=== PATIENT | female | born 1995 | race Caucasian/White ===

== ENCOUNTER → 2016-09-29 | Outpatient (CLI) | payer OTHER ==
--- NOTE | 2016-09-29 10:40 | CT ---
EXAMINATION TYPE: CT soft tissue neck wo con DATE OF EXAM: 09/29/2016 8:41 AM COMPARISON: Ultrasound thyroid 04 December 2015 HISTORY: Neck pain, thyromegaly and shortness of breath Automated exposure control for dose reduction was used. FINDINGS: Mild mucosal disease present at the maxillary sinus antra, right sphenoid sinus. Heterogeneous densit y within the thyroid gland compatible with patient's known nodules. Lung apices are unremarkable. Non enlarged lymph nodes are present along the anterior cervical chains, BB is present overlying the left neck region, no additional underlying mass. Salivary gland show symmetric appearance. Skull base is normal. The airway is patent. Level the true and false cords is normal. No evident spinal stenosis. Cervical vertebral bodies show preserved height, alignment, and bone mine ralization. IMPRESSION: SINUS DISEASE. SUBCENTIMETER THYROID NODULES WERE NOTED ON PRIOR THYROID ULTRASOUND. NONCONTRAST EXAM MAY LIMIT SENSITIVITY.
== END | disposition home or self-care (01) ==
LOC: RADCTMAIN 08:24
PROVIDERS: ATTEND Internal Medicine Hematology & Oncology
DX: E04.2 Nontoxic multinodular goiter (principal)
CPT/HCPCS: 70490

== ENCOUNTER 2016-10-05 17:02 | Emergency (ER) | payer OTHER ==
[2016-10-05 17:41] VITALS: BP 110/65; PULSE 127; RESP 20; TEMP 103
[2016-10-05] MEDS ORDERED: ACETAMINOPHEN TAB 500 MG TAB PO STA (17:47)
[2016-10-05] MEDS ORDERED: IBUPROFEN 600 MG TAB PO STA (17:47)
--- NOTE | 2016-10-05 17:54 | ED ---
Fever HPI - General Chief Complaint: Fever Stated Complaint: Flu symptom Time Seen by Provider: 10/05/16 17:43 Source: patient Mode of arrival: ambulatory Limitations: no limitations - History of Present Illness Initial Comments: Patient is a 21-year-old female presenting with fever. Patient states fever started yesterday and has been subjective in nature. Patient took Tylenol last at 8 AM. Patient complains of headache, congestion, myalgias, sore throat. Patient sister was recently in the ER this morning and diagnosed with influenza B. Patient denies chest pain, short of breath, nausea, vomiting, and abdominal pain, dysuria. - Related Data Home Medications Medication Instructions Recorded Confirmed No Known Home Medications [No 05/04/16 10/05/16 Known Home Medications] Previous Rx's Medication Instructions Recorded Oseltamivir [Tamiflu] 75 mg PO Q12HR #10 cap 10/05/16 Allergies Allergy/AdvReac Type Severity Reaction Status Date / Time No Known Allergies Allergy Verified 10/05/16 18:01 Review of Systems ROS Statement: Those systems with pertinent positive or pertinent negative responses have been documented in the HPI. Constitutional: +fever and no chills. HENT: +congestion, no rhinorrhea and +sore throat. Eyes: No discharge and no redness. Respiratory: No cough and no shortness of breath. Cardiovascular: No chest pain and no palpitations. Gastrointestinal: No nausea, no vomiting, no abdominal pain and no diarrhea. Genitourinary: No dysuria and no hematuria. Musculoskeletal: No back pain and + myalgias Skin: No pallor and no rash. Neurological: No dizziness and +headaches. ROS Other: All systems not noted in ROS Statement are negative. Past Medical History Past Medical History: No Reported History Additional Past Medical History / Comment(s): nodules on thyroid History of Any Multi-Drug Resistant Organisms: None Reported Past Surgical History: No Surgical Hx Reported Past Psychological History: Anxiety Smoking Status: Never smoker Past Alcohol Use History: Occasional Past Drug Use History: None Reported General Exam - General Exam Comments Initial Comments: Constitutional: Patient appears well-developed and well-nourished. No distress. Warm to the touch. Head: Normocephalic and atraumatic. Eyes: Conjunctivae and EOM are normal. Right eye exhibits no discharge. Left eye exhibits no discharge. No scleral icterus. Ears: Bilateral TMs with normal landmarks Throat: Erythematous without tonsillar exudates. Neck: Normal range of motion. Neck supple. No rigidity. Cardiovascular: Normal rate and regular rhythm. No murmur heard. Pulmonary/Chest: Effort normal and breath sounds normal. No respiratory distress. No wheezes. Abdominal: Soft. No distension. There is no tenderness. There is no rebound and no guarding. Musculoskeletal: Normal range of motion. No edema or tenderness. Neurological: Patient alert and oriented to person, place, and time. Skin: Skin is warm and dry. Not diaphoretic. Nursing notes and vitals reviewed. Limitations: no limitations Course Vital Signs 10/05/16 17:37 Temperature 103.0 F H Pulse Rate 127 H Respiratory 20 Rate Blood Pressure 110/65 O2 Sat by Pulse 100 Oximetry - Reevaluation(s) Reevaluation #1: Patient will be given Tylenol Motrin while here. Patient agrees with plan for prophylactic treatment of influenza given that her sister was recently here and diagnosed with influenza B. Medical Decision Making - Medical Decision Making Patient's a 21-year-old female presenting with fever. Patient has a sick contact at home versus was diagnosed with influenza B earlier today. She has no other source of fever and will be prophylactically treated with Tamiflu.Prior to discharge, patient was resting comfortably in bed. Course of stay stable for outpatient treatment. Denies pain. Discussed physical exam and diagnostic tests with patient. Questions answered and patient is agreeable to discharge with close follow up with Primary Care Physician. Instructed to return to Emergency Department if symptoms worsen. Disposition Clinical Impression: Influenza Disposition: HOME SELF-CARE Condition: Good Instructions: Fever in Adults (ED) Prescriptions: Oseltamivir [Tamiflu] 75 mg PO Q12HR #10 cap Referrals: Amaury Lilly MD [Primary Care Provider] - 1-2 days
== END 2016-10-05 18:11 | disposition home or self-care (01) ==
LOC: EC 17:02
DX: J11.1 Influenza due to unidentified influenza virus with other respiratory manifestations (principal)
CPT/HCPCS: 99282

== ENCOUNTER 2016-12-04 23:22 | Emergency (ER) | payer OTHER ==
[2016-12-04 23:29] VITALS: RESP 18; TEMP 98
[2016-12-05] MEDS ORDERED: MAG HYDROX/AL HYDROX/SIMETH 30 ML, HYOSCYAMINE ELIXIR 10 ML, CIMETIDINE HCL 300 MG, LID... PO STA ×4 (00:03)
--- NOTE | 2016-12-05 00:05 | ED ---
General Adult HPI - General Chief complaint: Nausea/Vomiting/Diarrhea Stated complaint: not able to eat, tyesha Time Seen by Provider: 12/04/16 23:39 Source: patient, RN notes reviewed Mode of arrival: ambulatory Limitations: no limitations - History of Present Illness Initial comments: Patient is a 21-year-old female presents to the emergency room for evaluation of heartburn and throat irritation. Patient states she's been having issues with enlarged thyroid and thyroid nodules. Patient states that she has the sensation of her throat clossing up. Patient states she has seen many specialists but they do not want to remove her nodules. Patient stated over the past 3 weeks she began developing worsening heartburn. Patient states she has not been taking any medications for it. Patient states she just wants the heartburn to stop. Patient states needs medication to help the heartburn. Patient denies fevers or chills. Patient denies chest pain. Patient denies headache or dizziness. Patient nausea or vomiting. - Related Data Home Medications Medication Instructions Recorded Confirmed Ibuprofen [Motrin] 400 mg PO Q6HR PRN 12/04/16 12/04/16 Previous Rx's Medication Instructions Recorded Famotidine [Pepcid] 20 mg PO DAILY #12 tablet 12/05/16 Allergies Allergy/AdvReac Type Severity Reaction Status Date / Time No Known Allergies Allergy Verified 12/04/16 23:44 Review of Systems ROS Statement: Those systems with pertinent positive or pertinent negative responses have been documented in the HPI. ROS Other: All systems not noted in ROS Statement are negative. Past Medical History Past Medical History: No Reported History Additional Past Medical History / Comment(s): nodules on thyroid History of Any Multi-Drug Resistant Organisms: None Reported Past Surgical History: No Surgical Hx Reported Past Psychological History: Anxiety Smoking Status: Never smoker Past Alcohol Use History: Rare Past Drug Use History: None Reported General Exam - General Exam Comments Initial Comments: Sitting in exam room, no acute distress. Limitations: no limitations General appearance: alert, in no apparent distress Head exam: Present: atraumatic, normocephalic, normal inspection Eye exam: Present: normal appearance ENT exam: Present: normal exam Neck exam: Present: normal inspection Respiratory exam: Present: normal lung sounds bilaterally. Absent: respiratory distress Cardiovascular Exam: Present: regular rate, normal rhythm, normal heart sounds Extremities exam: Present: normal inspection Back exam: Present: normal inspection Neurological exam: Present: alert, oriented X3, CN II-XII intact, normal gait Psychiatric exam: Present: normal affect, normal mood Skin exam: Present: warm, dry, intact, normal color. Absent: rash Course Vital Signs 12/04/16 12/05/16 23:26 01:50 Temperature 98.0 F Pulse Rate 83 74 Respiratory 18 18 Rate Blood Pressure 114/72 124/72 O2 Sat by Pulse 100 96 Oximetry Medical Decision Making - Medical Decision Making Patient is a 21-year-old female presents emergency room for evaluation of heartburn. Patient given GI cocktail with slight relief of symptoms. Patient states her throat feels swollen. Soft tissue neck x-ray shows no concerning findings. Patient given Solu-Medrol and Pepcid. Will send patient home with Pepcid for heartburn and advised her to follow-up with her primary care provider. Return parameters discussed. Case discussed with Dr. Cross. - Radiology Data Radiology results: report reviewed, image reviewed Disposition Clinical Impression: Acid reflux Disposition: HOME SELF-CARE Condition: Good Instructions: Gastroesophageal Reflux Disease (ED) Additional Instructions: Take Pepcid as directed. Please follow up with primary care provider in 1-2 days. If any new symptom arises or symptoms worsen, return to ER as soon as possible. Prescriptions: Famotidine [Pepcid] 20 mg PO DAILY #12 tablet Referrals: Amaury Lilly MD [Primary Care Provider] - 1-2 days Time of Disposition: 01:44
[2016-12-05] MEDS ORDERED: methylPREDNISolone SOD SUCCI 125 MG/2 ML VIAL IM ONE (01:00)
[2016-12-05] MEDS ORDERED: FAMOTIDINE 20 MG TAB PO STA (01:01)
--- NOTE | 2016-12-05 01:14 | XR ---
EXAM: XR Soft Tissue Neck. CLINICAL HISTORY: Reason: Pain TECHNIQUE: Frontal and lateral views of the soft tissues of the neck. COMPARISON: No relevant prior studies available. FINDINGS: Airway: Unremarkable. No abnormal narrowing. Soft tissues: Unremarkable. No abnormal soft tissue prominence. Normal epiglottis. Bones: No acute findings. IMPRESSION: Normal neck.
[2016-12-05 02:01] VITALS: BP 124/72; PULSE 74
== END 2016-12-05 01:50 | disposition home or self-care (01) ==
LOC: EC 23:22
DX: K21.9 Gastro-esophageal reflux disease without esophagitis (principal); R09.89 Other specified symptoms and signs involving the circulatory and respiratory systems; E04.1 Nontoxic single thyroid nodule
CPT/HCPCS: 70360; 99283

== ENCOUNTER 2017-03-15 03:38 | Emergency (ER) | payer OTHER ==
[2017-03-15 03:44] VITALS: BP 114/71; PULSE 78; RESP 18; TEMP 98.5
[2017-03-15] MEDS ORDERED: BUPIVACAINE (PF) 0.5% 30 ML VIAL MISCELLANE STA (03:52)
--- NOTE | 2017-03-15 04:07 | ED ---
ENT HPI - General Chief complaint: Dental/Oral Stated complaint: Dental Pain Time Seen by Provider: 03/15/17 03:46 Source: patient, RN notes reviewed Mode of arrival: ambulatory Limitations: no limitations - History of Present Illness Initial comments: Patient is a 21-year-old female presents to the emergency room for evaluation abdominal pain. Patient states she has been having dental pain for the past few weeks. Patient states pains been worsening throughout the night. Patient does state she has a fractured tooth in her left upper tooth. Patient states that she has been unable to follow-up with a dentist. patient states been taking Tylenol with little relief of symptoms. Patient does states she is 19 weeks . Patient states she's been doing saltwater gargles with little relief of symptoms. Patient denies fevers or chills. Patient denies headache or dizziness. Patient denies facial swelling. - Related Data Previous Rx's Medication Instructions Recorded Amoxicillin 500 mg PO Q12HR 10 Days 03/15/17 Allergies Allergy/AdvReac Type Severity Reaction Status Date / Time No Known Allergies Allergy Verified 03/15/17 03:44 Review of Systems ROS Statement: Those systems with pertinent positive or pertinent negative responses have been documented in the HPI. ROS Other: All systems not noted in ROS Statement are negative. Past Medical History Past Medical History: No Reported History Additional Past Medical History / Comment(s): nodules on thyroid History of Any Multi-Drug Resistant Organisms: None Reported Past Surgical History: No Surgical Hx Reported Past Psychological History: Anxiety Smoking Status: Never smoker Past Alcohol Use History: None Reported Past Drug Use History: None Reported General Exam - General Exam Comments Initial Comments: laying in exam room, no acute distress. Limitations: no limitations General appearance: alert, in no apparent distress Head exam: Present: atraumatic, normocephalic, normal inspection Eye exam: Present: normal appearance ENT exam: Present: normal exam Expanded Teeth exam: Present: fractured tooth # (14), dental tenderness # (14) Neck exam: Present: normal inspection Respiratory exam: Absent: respiratory distress Extremities exam: Present: normal inspection Back exam: Present: normal inspection Neurological exam: Present: alert, oriented X3, CN II-XII intact, normal gait Psychiatric exam: Present: normal affect, normal mood Skin exam: Present: warm, dry, intact, normal color. Absent: rash Course Vital Signs 03/15/17 03:41 Temperature 98.5 F Pulse Rate 78 Respiratory 18 Rate Blood Pressure 114/71 O2 Sat by Pulse 99 Oximetry Procedures - Nerve Block Consent Obtained: verbal consent Local Anesthetic Used: Marcaine 0.5% Amount of anesthesia used: 2 Side: left Intraoral Nerve Block: superior alveolar Procedure Successful: Yes Complications: none Patient Tolerated Procedure: well, no complications Medical Decision Making - Medical Decision Making Patient is a 21-year-old female presents emergency room for evaluation of dental pain. Patient requesting dental block. Patient was sent home on antibiotics and advised to follow-up with dentist. Return parameters discussed. Case discussed Dr. Childers. Disposition Clinical Impression: Pain, dental Disposition: HOME SELF-CARE Condition: Good Instructions: Dental Caries (ED), Toothache (ED) Additional Instructions: Please follow up with a dentist. If you do not have a dentist, you may contact [facility]. Phone number is [phone] for existing clients. For new clients you may call [phone]. Another option is you have is the [facility] dental school. Phone number is [phone]. Medications as directed. Saltwater gargles. Cold fluids can sometimes help with pain as well. Return to the Emergency Room for any worsening or changing symptoms. Use cold compresses to the outside of the face. Prescriptions: Amoxicillin 500 mg PO Q12HR 10 Days Referrals: Amaury Lilly MD [Primary Care Provider] - 1-2 days Time of Disposition: 04:06
== END 2017-03-15 04:15 | disposition home or self-care (01) ==
LOC: EC 03:38
DX: O9A.212 Injury, poisoning and certain other consequences of external causes complicating pregnancy, second trimester (principal); S02.5XXA Fracture of tooth (traumatic), initial encounter for closed fracture; O99.89 Other specified diseases and conditions complicating pregnancy, childbirth and the puerperium; R10.9 Unspecified abdominal pain; Z3A.19 19 weeks gestation of pregnancy
CPT/HCPCS: 64400; 99282

== ENCOUNTER → 2017-05-01 | Outpatient (CLI) | payer OTHER ==
[2017-05-01 12:44] LABS: CH 27.6; CHCM 33.8; HDW 3.14; HGB 11.6 gm/dL (11.4-16.0); MCH 28.1 pg (25.0-35.0); MCHC 34.2 g/dL (31.0-37.0); MCV 82.2 fL (80.0-100.0); Mean Platelet Volume 8.6; RBC 4.13 m/uL (3.80-5.40); RDW 14.4 % (11.5-15.5); WBC 9.2 k/uL (3.8-10.6)
[2017-05-01 15:31] LABS: Glucose 103 mg/dL (74-99); Non-African American GFR(MDRD) >60 (>60 ml/min/1.73 sqM)
[2017-05-01 16:03] LABS: Hepatitis B Surface Ag Index 0.06
[2017-05-01 20:56] LABS: Treponemal Ab Non-Reactive (Non-Reactive)
== END | disposition home or self-care (01) ==
LOC: LABWHC1 11:22
PROVIDERS: ATTEND Obstetrics & Gynecology
DX: Z34.82 Encounter for supervision of other normal pregnancy, second trimester (principal); Z3A.00 Weeks of gestation of pregnancy not specified
CPT/HCPCS: 36415; 82565; 82947; 82950; 85027; 86762; 86780; 86850; 86900; 86901; 87340

== ENCOUNTER → 2018-04-12 | Outpatient (CLI) | payer OTHER ==
--- NOTE | 2018-04-13 05:37 | US ---
EXAMINATION TYPE: US thyroid st tissue head/neck DATE OF EXAM: 04/12/2018 COMPARISON: US 12/04/2015, CT 09/29/2016 CLINICAL HISTORY: 22-year-old female E04.1 Goiter. TECHNIQUE: Multiple sonographic images of the thyroid gland are obtained. FINDINGS: GLAND SIZE: Right Lobe: 5.7 x 2.0 x 2.0 cm Overall Parenchyma: homogenous Left Lobe: 5.5 x 1.9 x 1.8 cm Overall Parenchyma: homogeneous Isthmus Thickness: 0.3 cm NODULES RIGHT: # of nodules measured on right: 1 1. 0.3 X 0.2 x 0.3 cm tiny 3 mm hypoechoic nodule at the mid pole with ill-defined margins; . This nodule is wider than tall and shows intranodular vascularity. Prior size: 0.4 x 0.3 x 0.3 cm LEFT: # of nodules measured on left: 2 1. 0.9 X 0.4 x 0.6 cm hypoechoic solid nodule at the upper pole with well-defined margins; . This nodule is wider than tall and shows intranodular vascularity. Prior size: 0.5 x 0.5 x 0.3 cm 2. 0.7 X 0.5 x 0.7 cm hypoechoic solid nodule at the lower pole with well-defined margins; . This n odule is wider than tall and shows intranodular vascularity. Prior size: 0.6 x 0.5 x 0.4 cm ISTHMUS: # of nodules measured in the isthmus: 0 Lymph node visualized right neck measuring 1.7 x 0.7 x 1.2 cm (1.2 cm short axis is borderline enlarg ed) IMPRESSION: 1. Mild thyromegaly with subcentimeter nodules may represent goiter. 2. A 9 x 6 mm solid nodule in the left upper pole has increased in size from 5 x 5 mm. Also, a 7 x 7 mm solid left lower pole nodule is slightly increased in size from 6 x 5 mm, previously. These should continue to be followed.
== END | disposition home or self-care (01) ==
LOC: RADUSWWP 15:43
PROVIDERS: ATTEND Family Medicine
DX: E04.2 Nontoxic multinodular goiter (principal)
CPT/HCPCS: 76536

== ENCOUNTER 2018-05-15 05:21 | Emergency (ER) | payer OTHER ==
[2018-05-15 05:32] VITALS: BP 114/67; PULSE 93; RESP 18; TEMP 968.3
--- NOTE | 2018-05-15 06:00 | XR ---
EXAMINATION TYPE: XR ankle complete RT DATE OF EXAM: 05/15/2018 COMPARISON: NONE HISTORY: Ankle pain TECHNIQUE: 3 views FINDINGS: There is some soft tissue swelling over the lateral malleolus. I see no fracture nor disloc ation. Joint spaces are normal. IMPRESSION: Soft tissue swelling. No fracture.
--- NOTE | 2018-05-15 06:20 | ED ---
General Adult HPI - General Chief complaint: Extremity Injury, Lower Stated complaint: Fall/Ankle Injury Time Seen by Provider: 05/15/18 05:44 Source: patient Mode of arrival: ambulatory Limitations: physical limitation - History of Present Illness Initial comments: Patient is a 22-year-old female presents to the emergency department for pain in the right ankle. Patient reports that she was walking off of her front porch , she misstepped off of a single step and rolled her ankle inward. She had pain but was able to ambulate but noted significant swelling to the ankle. Her family do have plans to travel to [place] for the weekend so she came to the ER for further evaluation before getting on the road. She denies any other complaints. - Related Data Home Medications Medication Instructions Recorded Confirmed No Known Home Medications 06/12/17 08/04/17 Allergies Allergy/AdvReac Type Severity Reaction Status Date / Time No Known Allergies Allergy Verified 08/04/17 07:17 Review of Systems ROS Statement: Those systems with pertinent positive or pertinent negative responses have been documented in the HPI. ROS Other: All systems not noted in ROS Statement are negative. Past Medical History Past Medical History: No Reported History Additional Past Medical History / Comment(s): nodules on thyroid History of Any Multi-Drug Resistant Organisms: None Reported Past Surgical History: No Surgical Hx Reported Past Anesthesia/Blood Transfusion Reactions: No Reported Reaction Past Psychological History: Anxiety Smoking Status: Never smoker Past Alcohol Use History: None Reported Past Drug Use History: None Reported - Past Family History Mother Family Medical History: No Reported History General Exam - General Exam Comments Initial Comments: GENERAL: Patient is well-developed and well-nourished. Patient is nontoxic and well- hydrated and is in no distress. HENT: Normocephalic, Atraumatic. EYES: PERRL PULMONARY: Unlabored respirations CARDIOVASCULAR: RRR ABDOMEN: Nondistended SKIN: Skin is clear with no lesions or rashes and otherwise unremarkable. NEUROLOGIC: Patient is alert and oriented x3. Motor and sensory are also intact. Normal speech, volume and content. Symmetrical smile. MUSCULOSKELETAL: Normal extremities with adequate strength and full range of motion. Right ankle with edema and tenderness over the anterior talofibular ligament. LYMPHATICS: No significant lymphadenopathy is noted PSYCHIATRIC: Normal psychiatric evaluation. Limitations: no limitations Limitations: physical limitation Course Vital Signs 05/15/18 05:29 Temperature 968.3 F H Pulse Rate 93 Respiratory 18 Rate Blood Pressure 114/67 O2 Sat by Pulse 100 Oximetry Medical Decision Making - Medical Decision Making Negative for fracture. Ankle sprain care was discussed with the patient patient discharged home in stable condition Disposition Clinical Impression: Ankle sprain and strain Disposition: HOME SELF-CARE Instructions: Ankle Sprain (ED) Is patient prescribed a controlled substance at d/c from ED?: No Referrals: Amaury Lilly MD [Primary Care Provider] - 1-2 days
== END 2018-05-15 06:25 | disposition home or self-care (01) ==
LOC: EC 05:21
DX: S93.401A Sprain of unspecified ligament of right ankle, initial encounter (principal); S96.911A Strain of unspecified muscle and tendon at ankle and foot level, right foot, initial encounter; W10.9XXA Fall (on) (from) unspecified stairs and steps, initial encounter; Y93.01 Activity, walking, marching and hiking; Y92.009 Unspecified place in unspecified non-institutional (private) residence as the place of occurrence of the external cause
CPT/HCPCS: 99283

== ENCOUNTER → 2018-06-16 | Outpatient (CLI) | payer OTHER ==
--- NOTE | 2018-06-16 14:33 | XR ---
EXAMINATION TYPE: XR ankle complete RT DATE OF EXAM: 06/16/2018 COMPARISON: 05/14/2018 HISTORY: Pain FINDINGS: Three views of the ankle demonstrate the ankle mortise to be intact and symmetric. The joint spaces are preserved. The osseous structures are intact. There are persistent soft tissue edema laterally. IMPRESSION: 1. No definite acute fracture or dislocation, if symptoms persist consider MRI.
--- NOTE | 2018-06-16 14:36 | XR ---
EXAMINATION TYPE: XR foot complete RT DATE OF EXAM: 06/16/2018 COMPARISON: NONE HISTORY: Pain TECHNIQUE: Three views are submitted. FINDINGS: The osseous structures are intact. There is no acute fracture or dislocation. Mild arthropathy of the first MTP. IMPRESSION: 1. No acute fracture or dislocation. If symptoms persist, follow-up exam in 7 to 10 days could be ob tained.
== END ==
LOC: RADXRMAIN 13:39
PROVIDERS: ATTEND Midwife
DX: M79.671 Pain in right foot (principal)

== ENCOUNTER 2019-02-18 22:50 | Emergency (ER) | payer OTHER ==
[2019-02-18] MEDS ORDERED: ASPIRIN 325 MG TAB PO STA (23:10)
[2019-02-18 23:45] LABS: ALT 16 U/L (9-52); AST 22 U/L (14-36); African American GFR (CKD) >90 (>60 ml/min/1.73 sqM); Albumin 4.2 g/dL (3.5-5.0); Alkaline Phosphatase 64 U/L (38-126); Anion Gap 9 mmol/L; Blood Urea Nitrogen 9 mg/dL (7-17); Calcium 9.1 mg/dL (8.4-10.2); Carbon Dioxide 25 mmol/L (22-30); Chloride 107 mmol/L (98-107); Glucose 100 mg/dL (74-99); Magnesium 1.9 mg/dL (1.6-2.3); Potassium 3.7 mmol/L (3.5-5.1); Sodium 141 mmol/L (137-145); Total Bilirubin 0.3 mg/dL (0.2-1.3)
[2019-02-18 23:55] LABS: D-Dimer 0.32 mg/L FEU (<0.60); INR 0.9 (<1.2); Partial Thromboplastin Time 24.2 sec (22.0-30.0); Prothrombin Time 10.1 sec (9.0-12.0)
--- NOTE | 2019-02-19 | XR ---
EXAM: XR Chest, 2 Views CLINICAL HISTORY: : Chest Pain TECHNIQUE: Frontal and lateral views of the chest. COMPARISON: 05/03/15 FINDINGS: Lungs: Unremarkable. No consolidation. Pleural space: Unremarkable. No pneumothorax. Heart: Unremarkable. No cardiomegaly. Mediastinum: Unremarkable. Bones/joints: Unremarkable. IMPRESSION: Unremarkable 2 views of the chest
[2019-02-19 00:46] LABS: Anisocytosis Slight; Basophils % (A) 1 %; Eosinophils # (A) 0.2 k/uL (0-0.7); Eosinophils % (A) 3 %; HCT 36.2 % (34.0-46.0); Hypochromasia Slight; Lymphocytes # (A) 2.2 k/uL (1.0-4.8); Lymphocytes % (A) 30 %; MCH 26.2 pg (25.0-35.0); MCV 79.4 fL (80.0-100.0); Mean Platelet Volume 8.9; Monocytes # (A) 0.4 k/uL (0-1.0); Monocytes % (A) 6 %; Neutrophils # (A) 4.3 k/uL (1.3-7.7); Neutrophils % (A) 60 %; Platelet Count 173 k/uL (150-450); RBC 4.56 m/uL (3.80-5.40); RDW 16.3 % (11.5-15.5); WBC 7.2 k/uL (3.8-10.6)
[2019-02-19] MEDS ORDERED: ALPRAZolam 0.25 MG TAB PO STA (01:09)
--- NOTE | 2019-02-19 01:09 | ED ---
Chest Pain HPI - General Source: patient Mode of arrival: ambulatory Limitations: no limitations <Joslyn Kent - Last Filed: 02/19/19 03:40> <Sheila Thorne - Last Filed: 02/20/19 04:15> - General Chief Complaint: Chest Pain Stated Complaint: Chest Pain Time Seen by Provider: 02/18/19 23:05 - History of Present Illness Initial Comments: 23-year-old female presenting for chest pain since 2 PM. Patient states that she has had anxiety attacks in the past patient states this feels similar. She states she has occasional sharp pain in her chest denies any current. Patient states she wanted make sure that it was just anxiety and presents emergency department for evaluation. Patient denies any radiation of the arm she denies any back pains denies any dizziness lightheadedness shortness of breath she denies any characteristic or pattern with breathing. She states it occurs randomly. Patient states she has had increasing stressors. Patient denies any injury or trauma to the chest. She denies a cough hemoptysis recent surgeries she denies any exogenous hormone use. Patient denies IV drug use or fevers. Patient denies history of DVT or pulmonary embolism. Remaining review of systems negative upon arrival. Patient appears well there is no signs of acute distress. (Joslyn Kent) - Related Data Home Medications Medication Instructions Recorded Confirmed Ibuprofen [Motrin Ib] 400 mg PO Q6H PRN 02/18/19 02/18/19 Allergies Allergy/AdvReac Type Severity Reaction Status Date / Time No Known Allergies Allergy Verified 02/18/19 23:02 Review of Systems ROS Other: All systems not noted in ROS Statement are negative. <Joslyn Kent - Last Filed: 02/19/19 03:40> ROS Other: All systems not noted in ROS Statement are negative. <Sheila Thorne - Last Filed: 02/20/19 04:15> ROS Statement: Those systems with pertinent positive or pertinent negative responses have been documented in the HPI. EKG Findings - EKG Comments: EKG Findings:: Ventricular rate 88 beats for minute, IA interval 156 ms, to administration 86 ms, QT/QTC 378/457 ms this is normal sinus. No ST elevation or depression. Possible left atrial enlargement. Otherwise normal EKG EKG interpreted by myself <Joslyn Kent - Last Filed: 02/19/19 03:40> Past Medical History Past Medical History: No Reported History Additional Past Medical History / Comment(s): nodules on thyroid History of Any Multi-Drug Resistant Organisms: None Reported Past Surgical History: No Surgical Hx Reported Past Anesthesia/Blood Transfusion Reactions: No Reported Reaction Past Psychological History: Anxiety Smoking Status: Never smoker Past Alcohol Use History: None Reported Past Drug Use History: None Reported - Past Family History Mother Family Medical History: No Reported History <Joslyn Kent - Last Filed: 02/19/19 03:40> General Exam Limitations: no limitations <Joslyn Kent - Last Filed: 02/19/19 03:40> - General Exam Comments Initial Comments: General: The patient is awake and alert, in no distress, and does not appear acutely ill. Eye: Pupils are equal, round and reactive to light, extra-ocular movements are intact. No nystagmus. There is normal conjunctiva bilaterally. No signs of icterus. Ears, nose, mouth and throat: There are moist mucous membranes and no oral lesions. Neck: The neck is supple, there is no tenderness or JVD. Cardiovascular: There is a regular rate and rhythm. No murmur, rub or gallop is appreciated. Respiratory: Lungs are clear to auscultation, respirations are non-labored, breath sounds are equal. No wheezes, stridor, rales, or rhonchi. Gastrointestinal: [Soft, non-distended, non-tender abdomen without masses or organomegaly noted. There is no rebound or guarding present. No CVA tenderness. Bowel sounds are unremarkable.] Musculoskeletal: Normal ROM, no tenderness. Strength 5/5. Sensation intact. Pulses equal bilaterally 2+. Neurological: A&O x 3. CN II-XII intact, There are no obvious motor or sensory deficits. Coordination appears grossly intact. Speech is normal. Skin: Skin is warm and dry and no rashes or lesions are noted. No LE edema. Psychiatric: Cooperative, appropriate mood & affect, normal judgment. (Joslyn Kent) Course Vital Signs 02/18/19 02/18/19 02/19/19 22:52 23:15 01:35 Temperature 97.9 F 97.4 F L Pulse Rate 75 67 Pulse Rate [ 72 [place] ] Respiratory 16 17 Rate Blood Pressure 117/75 111/73 O2 Sat by Pulse 99 100 Oximetry Chest Pain MDM <Joslyn Kent - Last Filed: 02/19/19 03:40> <Sheila Thorne - Last Filed: 02/20/19 04:15> - [facility] Well-appearing 23-year-old female presenting for occasional chest pain. Anxiety. Patient denies any current symptoms. Patient appears well. Normal EKG. No murmur on exam. No lower extremity swelling. Lungs clear. Chest x- ray no acute abnormalities. No enlargement of the heart. Patient has no history of heart disease or premature coronary artery disease with the family. Symptoms ongoing since 2 PM. Troponin (-) Dimer (-). Patient pain appears atypical. At this time feel patient is stable for discharge with outpatient primary care follow-up. Discussed case with Dr. Thorne prior to d/c (Joslyn Kent) I was available for consultation in the emergency department. The history and physical exam were done by the midlevel provider. I was consulted for this patient's care. I reviewed the case with the midlevel provider and based on their presentation of the patient, I agree with the assessment, medical decision making and plan of care as documented. Chart was dictated using swabr dictation software. Attempts were made to correct any dictation errors however some typographical errors may persist. (Sheila Thorne) Disposition Is patient prescribed a controlled substance at d/c from ED?: No <Joslyn Kent - Last Filed: 02/19/19 03:40> <Sheila Thorne - Last Filed: 02/20/19 04:15> Clinical Impression: Atypical chest pain, Anxiety Disposition: HOME SELF-CARE Condition: Good Instructions (If sedation given, give patient instructions): Chest Pain (ED), Anxiety (ED) Additional Instructions: Please use medication as discussed. Please follow-up with family doctor in the next 2 days Please return to emergency room if the symptoms increase or worsen or for any other concerns. Referrals: Amaury Lilly MD [Primary Care Provider] - 1-2 days
[2019-02-19 01:36] VITALS: BP 111/73; PULSE 67; RESP 17; TEMP 97.4
== END 2019-02-19 01:34 | disposition home or self-care (01) ==
LOC: EC 22:50
DX: F41.9 Anxiety disorder, unspecified (principal); R07.89 Other chest pain
CPT/HCPCS: 36415; 71046; 80053; 83735; 84484; 85025; 85379; 85610; 85730; 93005; 99285

== ENCOUNTER → 2019-04-15 | Outpatient (CLI) | payer OTHER ==
--- NOTE | 2019-04-15 15:23 | US ---
EXAMINATION TYPE: Ultrasound OB <= 14 week fetus DATE OF EXAM: 04/15/2019 12:34 PM COMPARISON: NONE CLINICAL HISTORY: 23-year-old female Z36 confirm dates and viability. EXAM PERFORMED: Transabdominal (TA) FINDINGS: EXAM MEASUREMENTS: GESTATIONAL AGE / DATING Physician Established: Not yet established Dates by LMP: 02/18/2019 (8 weeks/0 days) EDC: 11/25/2019 Dates by First Scan: No previous this is first scan Dates by Current Scan for: (7 weeks/5 days) EDC: 11/27/2019 MATERNAL ANATOMY Uterus: 13.3 x 5.9 x 7.7 cm Right Ovary: 3.8 x 1.9 x 3.9 cm Left Ovary: 3.5 x 1.9 x 1.9 cm Post CDS / Adnexa: wnl Presence of free fluid: none GESTATION / SURVEY CRL: 1.4 cm (7 weeks/5 days) Yolk Sac (normal less than 6mm): 0.4 cm Heart Rate: 146 bpm Rhythm: Normal IUP: Viable IUP Date of LMP: 02/18/2019 Information Technology Data Analyst notes: Viable IUP that correlates with LMP. IMPRESSION: 1. Single live intrauterine with estimated gestational age of 8 weeks 0 days by LMP. Curren t ultrasound biometry is 2 days smaller and concordant (7 weeks 5 days). 2. Complete survey recommended at 18-20 weeks.
== END | disposition home or self-care (01) ==
LOC: RADUSWWP 12:05
PROVIDERS: ATTEND Obstetrics & Gynecology
DX: Z36.9 Encounter for antenatal screening, unspecified (principal)
CPT/HCPCS: 76801

== ENCOUNTER 2019-06-01 15:58 | Emergency (ER) | payer OTHER ==
[2019-06-01 16:11] VITALS: RESP 18
--- NOTE | 2019-06-01 17:38 | ED ---
ENT HPI - General Chief complaint: ENT Stated complaint: Throat Pain Time Seen by Provider: 06/01/19 17:00 Source: patient Mode of arrival: ambulatory Limitations: no limitations - History of Present Illness Initial comments: 23-year-old female presented for pain in her thyroid. Patient states that she has been diagnosed previously with 3 thyroid nodules which they have been monitoring her primary care as well as general surgeon Dr. Lilly. Patient st ates that for the past couple days she has had pain in the area of her thyroid. Patient states she has no difficulty swallowing or breathing however she is concerned that the thyroid nodules or enlarging. Patient denies stridor drooling tripoding denies fever or sore throat congestion cough or upper rest or symptoms. Patient has no other complaints. Patient states she wanted to make sure her thyroid was evaluated. Remaining review of systems negative. Upon arrival patient appears well distress denies any abdominal pain vaginal bleeding cramping or any other concerns in regards to her . - Related Data Home Medications Medication Instructions Recorded Confirmed No Known Home Medications 06/01/19 06/01/19 Allergies Allergy/AdvReac Type Severity Reaction Status Date / Time No Known Allergies Allergy Verified 06/01/19 17:57 Review of Systems ROS Statement: Those systems with pertinent positive or pertinent negative responses have been documented in the HPI. ROS Other: All systems not noted in ROS Statement are negative. Past Medical History Past Medical History: No Reported History, Thyroid Disorder Additional Past Medical History / Comment(s): nodules on thyroid History of Any Multi-Drug Resistant Organisms: None Reported Past Surgical History: No Surgical Hx Reported Past Anesthesia/Blood Transfusion Reactions: No Reported Reaction Past Psychological History: Anxiety Smoking Status: Never smoker Past Alcohol Use History: None Reported Past Drug Use History: None Reported - Past Family History Mother Family Medical History: No Reported History General Exam - General Exam Comments Initial Comments: General: The patient is awake and alert, in no distress, and does not appear acutely ill. Eye: +3 mm pupils are equal, round and reactive to light, extra-ocular movements are intact. No nystagmus. There is normal conjunctiva bilaterally. No signs of icterus. Ears, nose, mouth and throat: There are moist mucous membranes and no oral lesions. Neck: The neck is supple, there is no tenderness or JVD. No obvious nodules on thyroid examination. Small smooth and coordinated. Oropharynx nonerythematous. No palpable anterior lymphadenopathy. No stridor or muffled voice tripoding or drooling. Patient tolerating oral secretions without difficulty. No signs of respiratory distress. Cardiovascular: There is a regular rate and rhythm. No murmur, rub or gallop is appreciated. Respiratory: Lungs are clear to auscultation, respirations are non-labored, breath sounds are equal. No wheezes, stridor, rales, or rhonchi. Gastrointestinal: Soft, non-distended, non-tender abdomen without masses or organomegaly noted. There is no rebound or guarding present. Musculoskeletal: Normal ROM, no tenderness. Strength 5/5. Sensation intact. Radial pulses equal bilaterally 2+. Neurological: A&O x 3. CN II-XII intact grossly, There are no obvious motor or sensory deficits. Coordination appears grossly intact. Speech is normal. Skin: Skin is warm and dry and no rashes or lesions are noted. Psychiatric: Cooperative, appropriate mood & affect, normal judgment. Limitations: no limitations Course Vital Signs 06/01/19 06/01/19 06/01/19 16:07 18:25 19:31 Temperature 98.2 F 98.0 F Pulse Rate 77 90 80 Respiratory 18 18 18 Rate Blood Pressure 107/71 104/71 O2 Sat by Pulse 100 100 Oximetry Medical Decision Making - Medical Decision Making 23yo female presenting for evaluation of thyroid. History of nodules. Feels as though they're enlarging. Pain 3 days. TSH within normal limits. Patient appears well. No elevation of heart rate out of proportion. No fever. Patient has no signs of compressive symptoms. No stridor muffling drooling patient able to tolerate oral secretions. No leukocytosis or signs of infection of physical examination. At this time I do feel patient is stable for discharge with outpatient primary care follow-up. I spoke with attending provider Dr. Todd was agreeable to this care plan discharge at this time. Patient refused heart tones stating that she needs to leave the hospital or go to work.. Patient discharged appearing well - Lab Data Result diagrams: 06/01/19 17:45 06/01/19 17:45 Lab Results 06/01/19 06/01/19 Range/Units 17:45 17:45 WBC 8.0 (3.8-10.6) k/uL RBC 4.61 (3.80-5.40) m/uL Hgb 12.4 (11.4-16.0) gm/dL Hct 38.1 (34.0-46.0) % MCV 82.6 (80.0-100.0) fL MCH 26.9 (25.0-35.0) pg MCHC 32.5 (31.0-37.0) g/dL RDW 14.4 (11.5-15.5) % Plt Count 191 (150-450) k/uL Neutrophils % 69 % Lymphocytes % 23 % Monocytes % 4 % Eosinophils % 2 % Basophils % 0 % Neutrophils # 5.5 (1.3-7.7) k/uL Lymphocytes # 1.8 (1.0-4.8) k/uL Monocytes # 0.4 (0-1.0) k/uL Eosinophils # 0.2 (0-0.7) k/uL Basophils # 0.0 (0-0.2) k/uL Sodium 137 (137-145) mmol/L Potassium 4.2 (3.5-5.1) mmol/L Chloride 107 (98-107) mmol/L Carbon Dioxide 18 L (22-30) mmol/L Anion Gap 12 mmol/L BUN 7 (7-17) mg/dL Creatinine 0.48 L (0.52-1.04) mg/dL Est GFR (CKD-EPI)AfAm >90 (>60 ml/min/1.73 sqM) Est GFR (CKD-EPI)NonAf >90 (>60 ml/min/1.73 sqM) Glucose 89 (74-99) mg/dL Calcium 9.5 (8.4-10.2) mg/dL Total Bilirubin 0.3 (0.2-1.3) mg/dL AST 29 (14-36) U/L ALT 21 (9-52) U/L Alkaline Phosphatase 67 (38-126) U/L Total Protein 7.4 (6.3-8.2) g/dL Albumin 4.0 (3.5-5.0) g/dL TSH 0.561 (0.465-4.680) mIU/L Disposition Clinical Impression: Neck pain, Hx of thyroid nodule Disposition: HOME SELF-CARE Condition: Good Instructions (If sedation given, give patient instructions): Thyroid Nodules (ED) Additional Instructions: Please use medication as discussed. Please follow-up with family doctor in the next 2 days. Please return to emergency room if the symptoms increase or worsen or for any other concerns if experience difficulty breathing, swallowing, fevers, heart palpitations return to ER.. Is patient prescribed a controlled substance at d/c from ED?: No Referrals: None,Stated [Primary Care Provider] - 1-2 days Time of Disposition: 19:40
[2019-06-01 18:43] LABS: Basophils % (A) 0 %; Eosinophils # (A) 0.2 k/uL (0-0.7); Eosinophils % (A) 2 %; HCT 38.1 % (34.0-46.0); HGB 12.4 gm/dL (11.4-16.0); Lymphocytes # (A) 1.8 k/uL (1.0-4.8); Lymphocytes % (A) 23 %; MCH 26.9 pg (25.0-35.0); MCHC 32.5 g/dL (31.0-37.0); MCV 82.6 fL (80.0-100.0); Mean Platelet Volume 7.8; Monocytes # (A) 0.4 k/uL (0-1.0); Monocytes % (A) 4 %; Neutrophils # (A) 5.5 k/uL (1.3-7.7); Neutrophils % (A) 69 %; Platelet Count 191 k/uL (150-450); RBC 4.61 m/uL (3.80-5.40); RDW 14.4 % (11.5-15.5)
[2019-06-01 19:31] LABS: ALT 21 U/L (9-52); AST 29 U/L (14-36); African American GFR (CKD) >90 (>60 ml/min/1.73 sqM); Alkaline Phosphatase 67 U/L (38-126); Anion Gap 12 mmol/L; Blood Urea Nitrogen 7 mg/dL (7-17); Calcium 9.5 mg/dL (8.4-10.2); Carbon Dioxide 18 mmol/L (22-30); Chloride 107 mmol/L (98-107); Glucose 89 mg/dL (74-99); Sodium 137 mmol/L (137-145); Total Bilirubin 0.3 mg/dL (0.2-1.3); Total Protein 7.4 g/dL (6.3-8.2)
[2019-06-01 19:33] LABS: Potassium 4.2 mmol/L (3.5-5.1)
[2019-06-01 19:34] VITALS: BP 104/71; PULSE 80; TEMP 98
== END 2019-06-01 19:51 | disposition home or self-care (01) ==
LOC: EC 15:58
DX: M54.2 Cervicalgia (principal); Z86.39 Personal history of other endocrine, nutritional and metabolic disease
CPT/HCPCS: 36415; 80053; 84443; 85025; 99283

== ENCOUNTER → 2019-06-07 | Outpatient (CLI) | payer OTHER ==
[2019-06-08 10:21] LABS: Alpha Fetoprotein 20.8 ng/mL; Alpha Fetoprotein (M.O.M) 0.71; B-HCG (M.O.M.) 0.77; Gestational Age (days) 4; Human Chorionic Gonadotropin 28.6 IU/mL; Inhibin A (M.O.M.) 0.81; Interpretation SeeBelow; Maternal Age at EDD (Yrs) 26; Smoker No; Unconjugated Estriol (M.O.M.) 0.63
== END | disposition home or self-care (01) ==
LOC: LABWHC1 16:21
PROVIDERS: ATTEND Obstetrics & Gynecology
DX: Z34.82 Encounter for supervision of other normal pregnancy, second trimester (principal)
CPT/HCPCS: 36415; 82105; 82677; 84702; 86336

== ENCOUNTER → 2019-06-23 | Outpatient (CLI) | payer OTHER ==
--- NOTE | 2019-06-24 07:33 | US ---
EXAMINATION TYPE: US thyroid st tissue head/neck DATE OF EXAM: 06/23/2019 COMPARISON: US 2018 CLINICAL HISTORY: E04.9 Thyroid goiter. Nontoxic goiter. Hx nodules. Trouble breathing. GLAND SIZE: Right Lobe: 5.7 x 2.4 x 1.8 cm Overall Parenchyma: appears slightly heterogenous Left Lobe: 5.3 x 2.2 x 1.7 cm Overall Parenchyma: appears slightly heterogeneous Isthmus Thickness: 0.35 cm NODULES RIGHT: # of nodules measured on right: 1 1. 0.3 X 0.4 x 0.2 cm hypoechoic solid nodule at the upper-mid pole with poorly defined margins. T his nodule is wider than tall and shows intranodular vascularity. Prior size: 0.3 x 0.2 x 0.3 cm LEFT: # of nodules measured on left: 2 1. 0.9 X 0.7 x 0.4 cm hypoechoic solid nodule at the upper pole with well-defined margins. This no dule is wider than tall and shows intranodular vascularity. Prior size: 0.9 x 0.4 x 0.6 cm 2. 0.7 X 0.5 x 0.5 cm hypoechoic mixed nodule at the lower pole with well-defined margins. This nod ule is as wide as it is tall and shows intranodular vascularity. Prior size: 0.7 x 0.5 x 0.7 cm ISTHMUS: # of nodules measured in the isthmus: 0 Bilateral neck scanned. Nonenlarged lymph node seen lateral to the right thyroid lobe measurin.6 x 1.7 x 0.7 cm. IMPRESSION: Similar size of the bilateral subcentimeter thyroid nodules. No significant interval grow th.
== END | disposition home or self-care (01) ==
LOC: RADUSMAIN 17:30
PROVIDERS: ATTEND Physician Assistant
DX: E04.2 Nontoxic multinodular goiter (principal)
CPT/HCPCS: 76536

== ENCOUNTER 2019-08-17 11:22 | Emergency (ER) | payer OTHER ==
[2019-08-17 11:34] VITALS: BP 120/79
[2019-08-17 12:35] LABS: Basophils % (A) 0 %; Eosinophils # (A) 0.1 k/uL (0-0.7); Eosinophils % (A) 2 %; HCT 34.2 % (34.0-46.0); HGB 11.4 gm/dL (11.4-16.0); Lymphocytes # (A) 1.4 k/uL (1.0-4.8); Lymphocytes % (A) 16 %; MCH 27.3 pg (25.0-35.0); MCHC 33.4 g/dL (31.0-37.0); MCV 81.8 fL (80.0-100.0); Mean Platelet Volume 8.6; Monocytes # (A) 0.5 k/uL (0-1.0); Monocytes % (A) 5 %; Neutrophils # (A) 6.4 k/uL (1.3-7.7); Neutrophils % (A) 75 %; Platelet Count 162 k/uL (150-450); RBC 4.18 m/uL (3.80-5.40); RDW 13.9 % (11.5-15.5); WBC 8.5 k/uL (3.8-10.6)
--- NOTE | 2019-08-17 12:38 | ED ---
SOB HPI - General Chief Complaint: Shortness of Breath Stated Complaint: palpitations, SOB Time Seen by Provider: 08/17/19 11:39 Source: patient Mode of arrival: ambulatory Limitations: no limitations - History of Present Illness Initial Comments: Patient is a 24-year-old female presenting to emergency Department with complaints of shortness of breath and palpitations for the past 3 days. Patient is currently 26 weeks . No complications thus far. She denies abdominal pain or vaginal bleeding. She also denies chest pain or any trauma. Patient states she does have a history of anxiety and she feels like the symptoms are making her anxiety worse. Patient denies history of DVT or PE. She denies any leg pain at this time. Denies recent fever, chills, cough. Denies any recent travel. She has no other complaints at this time. Upon arrival to the ER, patient's vital signs are stable. - Related Data Home Medications Medication Instructions Recorded Confirmed No Known Home Medications 06/01/19 08/17/19 Allergies Allergy/AdvReac Type Severity Reaction Status Date / Time No Known Allergies Allergy Verified 08/17/19 15:05 Review of Systems ROS Statement: Those systems with pertinent positive or pertinent negative responses have been documented in the HPI. ROS Other: All systems not noted in ROS Statement are negative. Past Medical History Past Medical History: No Reported History, Thyroid Disorder Additional Past Medical History / Comment(s): nodules on thyroid History of Any Multi-Drug Resistant Organisms: None Reported Past Surgical History: No Surgical Hx Reported Past Anesthesia/Blood Transfusion Reactions: No Reported Reaction Past Psychological History: Anxiety Smoking Status: Never smoker Past Alcohol Use History: None Reported Past Drug Use History: None Reported - Past Family History Mother Family Medical History: No Reported History General Exam - General Exam Comments Initial Comments: GENERAL: Well-appearing, well-nourished and in no acute distress. HEAD: Atraumatic, normocephalic. EYES: Pupils equal round and reactive to light, extraocular movements intact, sclera anicteric, conjunctiva are normal. ENT: TMs normal, nares patent, oropharynx clear without exudates. Moist mucous membranes. NECK: Normal range of motion, supple without lymphadenopathy or JVD. LUNGS: Breath sounds clear to auscultation bilaterally and equal. No wheezes rales or rhonchi. HEART: Regular rate and rhythm without murmurs, rubs or gallops. ABDOMEN: Soft, nontender, normoactive bowel sounds. No guarding, no rebound. 26 weeks . : Deferred EXTREMITIES: Normal range of motion, no pitting or edema. No clubbing or cyanosis. NEUROLOGICAL: Cranial nerves II through XII grossly intact. Normal speech, normal gait. PSYCH: Normal mood, normal affect. SKIN: Warm, Dry, normal turgor, no rashes or lesions noted. Limitations: no limitations Course Vital Signs 08/17/19 08/17/19 08/17/19 11:32 12:25 14:44 Temperature 98.2 F 98.5 F Pulse Rate 93 87 Respiratory 18 18 19 Rate Blood Pressure 120/79 O2 Sat by Pulse 100 99 Oximetry Medical Decision Making - Medical Decision Making Patient is a 24-year-old female presenting with shortness of breath as well as episodes of palpitations. Patient has no history of DVT or PE. Patient's currently 26 weeks . Vital signs are stable upon arrival. EKG shows no acute changes. Chest x-ray is normal. Lab work and UA showed no acute abnormalities. Discussed these findings with the patient. Most likely symptoms are related to her anxiety. She is stable for discharge at this time. Patient will follow-up with her [employer]. She is in agreement with this plan of care. Return parameters were discussed with the patient she verbalized understanding. Case discussed with Dr. Cross. - Lab Data Result diagrams: 08/17/19 12:20 08/17/19 12:20 Lab Results 08/17/19 08/17/19 08/17/19 Range/Units 12:10 12:20 12:20 WBC 8.5 (3.8-10.6) k/uL RBC 4.18 (3.80-5.40) m/uL Hgb 11.4 (11.4-16.0) gm/dL Hct 34.2 (34.0-46.0) % MCV 81.8 (80.0-100.0) fL MCH 27.3 (25.0-35.0) pg MCHC 33.4 (31.0-37.0) g/dL RDW 13.9 (11.5-15.5) % Plt Count 162 (150-450) k/uL Neutrophils % 75 % Lymphocytes % 16 % Monocytes % 5 % Eosinophils % 2 % Basophils % 0 % Neutrophils # 6.4 (1.3-7.7) k/uL Lymphocytes # 1.4 (1.0-4.8) k/uL Monocytes # 0.5 (0-1.0) k/uL Eosinophils # 0.1 (0-0.7) k/uL Basophils # 0.0 (0-0.2) k/uL PT (9.0-12.0) sec INR (<1.2) APTT (22.0-30.0) sec Sodium 136 L (137-145) mmol/L Potassium 3.9 (3.5-5.1) mmol/L Chloride 107 (98-107) mmol/L Carbon Dioxide 23 (22-30) mmol/L Anion Gap 6 mmol/L BUN 10 (7-17) mg/dL Creatinine 0.49 L (0.52-1.04) mg/dL Est GFR (CKD-EPI)AfAm >90 (>60 ml/min/1.73 sqM) Est GFR (CKD-EPI)NonAf >90 (>60 ml/min/1.73 sqM) Glucose 96 (74-99) mg/dL Calcium 9.5 (8.4-10.2) mg/dL Total Bilirubin 0.3 (0.2-1.3) mg/dL AST 20 (14-36) U/L ALT 12 (4-34) U/L Alkaline Phosphatase 69 (38-126) U/L Troponin I (0.000-0.034) ng/mL Total Protein 6.6 (6.3-8.2) g/dL Albumin 3.5 (3.5-5.0) g/dL TSH 1.440 (0.465-4.680) mIU/L Urine Color Yellow Urine Appearance Cloudy H (Clear) Urine pH 6.5 (5.0-8.0) Ur Specific Bowie 1.019 (1.001-1.035) Urine Protein Trace H (Negative) Urine Glucose (UA) Negative (Negative) Urine Ketones Negative (Negative) Urine Blood Negative (Negative) Urine Nitrite Negative (Negative) Urine Bilirubin Negative (Negative) Urine Urobilinogen <2.0 (<2.0) mg/dL Ur Leukocyte Esterase Negative (Negative) Urine RBC 2 (0-5) /hpf Urine WBC 6 H (0-5) /hpf Ur Squamous Epith Cells 10 H (0-4) /hpf Urine Mucus Few H (None) /hpf 08/17/19 08/17/19 Range/Units 12:20 12:20 WBC (3.8-10.6) k/uL RBC (3.80-5.40) m/uL Hgb (11.4-16.0) gm/dL Hct (34.0-46.0) % MCV (80.0-100.0) fL MCH (25.0-35.0) pg MCHC (31.0-37.0) g/dL RDW (11.5-15.5) % Plt Count (150-450) k/uL Neutrophils % % Lymphocytes % % Monocytes % % Eosinophils % % Basophils % % Neutrophils # (1.3-7.7) k/uL Lymphocytes # (1.0-4.8) k/uL Monocytes # (0-1.0) k/uL Eosinophils # (0-0.7) k/uL Basophils # (0-0.2) k/uL PT 9.7 (9.0-12.0) sec INR 0.9 (<1.2) APTT 23.0 (22.0-30.0) sec Sodium (137-145) mmol/L Potassium (3.5-5.1) mmol/L Chloride (98-107) mmol/L Carbon Dioxide (22-30) mmol/L Anion Gap mmol/L BUN (7-17) mg/dL Creatinine (0.52-1.04) mg/dL Est GFR (CKD-EPI)AfAm (>60 ml/min/1.73 sqM) Est GFR (CKD-EPI)NonAf (>60 ml/min/1.73 sqM) Glucose (74-99) mg/dL Calcium (8.4-10.2) mg/dL Total Bilirubin (0.2-1.3) mg/dL AST (14-36) U/L ALT (4-34) U/L Alkaline Phosphatase (38-126) U/L Troponin I <0.012 (0.000-0.034) ng/mL Total Protein (6.3-8.2) g/dL Albumin (3.5-5.0) g/dL TSH (0.465-4.680) mIU/L Urine Color Urine Appearance (Clear) Urine pH (5.0-8.0) Ur Specific Bowie (1.001-1.035) Urine Protein (Negative) Urine Glucose (UA) (Negative) Urine Ketones (Negative) Urine Blood (Negative) Urine Nitrite (Negative) Urine Bilirubin (Negative) Urine Urobilinogen (<2.0) mg/dL Ur Leukocyte Esterase (Negative) Urine RBC (0-5) /hpf Urine WBC (0-5) /hpf Ur Squamous Epith Cells (0-4) /hpf Urine Mucus (None) /hpf - EKG Data EKG Comments: Ventricular rate 105, MI interval 126, QTc 446. Sinus tachycardia otherwise normal EKG. No acute ST segment changes. No PE findings. Disposition Clinical Impression: Shortness of breath, Anxiety, and not yet delivered in second trime ster Disposition: HOME SELF-CARE Condition: Stable Instructions (If sedation given, give patient instructions): Anxiety (ED) Additional Instructions: Please return to the Emergency Department if symptoms worsen or any other concerns. Follow-up with [employer] as discussed. Is patient prescribed a controlled substance at d/c from ED?: No Referrals: Amaury Lilly MD [Primary Care Provider] - 1-2 days Андрей Holland DO [Doctor of Osteopathic Medicine] - 1-2 days
[2019-08-17 12:46] LABS: INR 0.9 (<1.2); Prothrombin Time 9.7 sec (9.0-12.0)
[2019-08-17 12:48] LABS: Appearance,Urine Cloudy (Clear); Bilirubin,Urine Negative (Negative); Blood,Urine Negative (Negative); Color,Urine Yellow; Glucose,Urine (UA) Negative (Negative); Ketones,Urine Negative (Negative); Leukocyte Esterase,Urine Negative (Negative); Mucus,Urine Few /hpf; Nitrite,Urine Negative (Negative); PH, Urine 6.5 (5.0-8.0); Protein,Urine Trace (Negative); RBC,Urine 2 /hpf (0-5); Specific Gravity,Urine 1.019 (1.001-1.035); Squamous Epithelial Cell,Urine 10 /hpf (0-4); Urobilinogen,Urine <2.0 mg/dL (<2.0); WBC,Urine 6 /hpf (0-5)
[2019-08-17 12:49] LABS: Potassium 3.9 mmol/L (3.5-5.1)
[2019-08-17 12:50] LABS: ALT 12 U/L (4-34); AST 20 U/L (14-36); African American GFR (CKD) >90 (>60 ml/min/1.73 sqM); Albumin 3.5 g/dL (3.5-5.0); Alkaline Phosphatase 69 U/L (38-126); Anion Gap 6 mmol/L; Blood Urea Nitrogen 10 mg/dL (7-17); Calcium 9.5 mg/dL (8.4-10.2); Carbon Dioxide 23 mmol/L (22-30); Chloride 107 mmol/L (98-107); Glucose 96 mg/dL (74-99); Non-African American GFR(CKD) >90 (>60 ml/min/1.73 sqM); Sodium 136 mmol/L (137-145); Total Bilirubin 0.3 mg/dL (0.2-1.3); Total Protein 6.6 g/dL (6.3-8.2)
--- NOTE | 2019-08-17 14:40 | XR ---
EXAMINATION TYPE: XR chest 2V DATE OF EXAM: 08/17/2019 COMPARISON: 02/18/2019 HISTORY: Short of breath TECHNIQUE: FINDINGS: Heart and mediastinum are normal. Lungs are clear. Diaphragm is normal. Bony thorax appears normal. IMPRESSION: Normal chest. No change.
[2019-08-17 14:45] VITALS: PULSE 87; RESP 19; TEMP 98.5
== END 2019-08-17 15:07 | disposition home or self-care (01) ==
LOC: EC 11:22
DX: O99.342 Other mental disorders complicating pregnancy, second trimester (principal); F41.9 Anxiety disorder, unspecified; Z3A.26 26 weeks gestation of pregnancy
CPT/HCPCS: 36415; 71046; 80053; 81001; 84443; 84484; 85025; 85610; 85730; 93005; 99285

== ENCOUNTER 2019-08-22 07:56 | Observation (INO) | payer OTHER ==
[2019-08-22] MEDS ORDERED: SODIUM CHLORIDE 0.9% 1,000 ML IV STA (08:42)
[2019-08-22 09:10] LABS: Appearance,Urine Clear (Clear); Bilirubin,Urine Negative (Negative); Blood,Urine Negative (Negative); Color,Urine Yellow; Glucose,Urine (UA) Negative (Negative); Ketones,Urine Negative (Negative); Leukocyte Esterase,Urine Negative (Negative); Nitrite,Urine Negative (Negative); PH, Urine 6.5 (5.0-8.0); Protein,Urine Negative (Negative); Specific Gravity,Urine 1.008 (1.001-1.035); Urobilinogen,Urine <2.0 mg/dL (<2.0)
[2019-08-22 09:11] LABS: Basophils % (A) 0 %; Eosinophils # (A) 0.1 k/uL (0-0.7); Eosinophils % (A) 1 %; HCT 33.4 % (34.0-46.0); HGB 11.4 gm/dL (11.4-16.0); Lymphocytes # (A) 1.3 k/uL (1.0-4.8); Lymphocytes % (A) 13 %; MCH 28.5 pg (25.0-35.0); MCHC 34.1 g/dL (31.0-37.0); MCV 83.5 fL (80.0-100.0); Mean Platelet Volume 8.8; Monocytes # (A) 0.4 k/uL (0-1.0); Monocytes % (A) 4 %; Neutrophils # (A) 8.1 k/uL (1.3-7.7); Neutrophils % (A) 81 %; Platelet Count 167 k/uL (150-450); RDW 14.3 % (11.5-15.5)
[2019-08-22 09:19] LABS: ALT 13 U/L (4-34); AST 25 U/L (14-36); African American GFR (CKD) >90 (>60 ml/min/1.73 sqM); Albumin 3.5 g/dL (3.5-5.0); Alkaline Phosphatase 91 U/L (38-126); Anion Gap 7 mmol/L; Blood Urea Nitrogen 5 mg/dL (7-17); Calcium 8.8 mg/dL (8.4-10.2); Carbon Dioxide 23 mmol/L (22-30); Chloride 107 mmol/L (98-107); Glucose 88 mg/dL (74-99); Magnesium 1.9 mg/dL (1.6-2.3); Non-African American GFR(CKD) >90 (>60 ml/min/1.73 sqM); Potassium 3.9 mmol/L (3.5-5.1); Sodium 137 mmol/L (137-145); Total Bilirubin 0.3 mg/dL (0.2-1.3); Total Protein 6.6 g/dL (6.3-8.2)
[2019-08-22 09:21] LABS: INR 0.9 (<1.2); Partial Thromboplastin Time 23.1 sec (22.0-30.0); Prothrombin Time 9.5 sec (9.0-12.0)
[2019-08-22 09:25] LABS: D-Dimer 1.04 mg/L FEU (<0.60)
--- NOTE | 2019-08-22 09:27 | ED ---
Chest Pain HPI - General Chief Complaint: Chest Pain Stated Complaint: chest tightness/rapid heart rate Time Seen by Provider: 08/22/19 08:28 Source: patient, RN notes reviewed Mode of arrival: ambulatory Limitations: no limitations - History of Present Illness Initial Comments: This a 24 show female presents emergency Department chief complaint of palp itations, chest tightness. Patient states this has been going on for over one week. Patient was seen in emergency department she days ago for similar complaints. Patient had workup which was negative for acute findings. Patient states she is 26 weeks she is A0 currently seen Dr. Mera. Patient states that she's never had any issues like this in the past with her other pregnancies. Patient denies any recent illnesses. Denies fevers or chills no complaints including vaginal bleeding vaginal discharge no decreased movement. Patient does admit that she's had enlarged thyroid foot on no medications. Patient denies any history of PE or DVT. She states that she does have some occasional shortness of breath with the chest tightness. She also feels that she has increased burping, gas pain. - Related Data Home Medications Medication Instructions Recorded Confirmed No Known Home Medications 06/01/19 08/22/19 Allergies Allergy/AdvReac Type Severity Reaction Status Date / Time No Known Allergies Allergy Verified 08/22/19 09:58 Review of Systems ROS Statement: Those systems with pertinent positive or pertinent negative responses have been documented in the HPI. ROS Other: All systems not noted in ROS Statement are negative. EKG Findings - EKG Comments: EKG Findings:: EKG performed a: 23 sinus tachycardia rate of 1:11 PM 136. 74 QT/QTC 334/454 Past Medical History Past Medical History: No Reported History, Thyroid Disorder Additional Past Medical History / Comment(s): nodules on thyroid History of Any Multi-Drug Resistant Organisms: None Reported Past Surgical History: No Surgical Hx Reported Past Anesthesia/Blood Transfusion Reactions: No Reported Reaction Past Psychological History: Anxiety Smoking Status: Never smoker Past Alcohol Use History: None Reported Past Drug Use History: None Reported - Past Family History Mother Family Medical History: No Reported History General Exam Limitations: no limitations General appearance: alert, in no apparent distress Head exam: Present: atraumatic, normocephalic, normal inspection Eye exam: Present: normal appearance, PERRL, EOMI. Absent: scleral icterus, conjunctival injection, periorbital swelling ENT exam: Present: normal exam, normal oropharynx, mucous membranes moist, TM's normal bilaterally Neck exam: Present: normal inspection, full ROM. Absent: tenderness, meningismus, lymphadenopathy Respiratory exam: Present: normal lung sounds bilaterally. Absent: respiratory distress, wheezes, rales, rhonchi, stridor Cardiovascular Exam: Present: normal rhythm, tachycardia, normal heart sounds. Absent: systolic murmur, diastolic murmur, rubs, gallop, clicks GI/Abdominal exam: Present: soft, normal bowel sounds. Absent: distended, tenderness, guarding, rebound, rigid Course Vital Signs 08/22/19 08/22/19 08/22/19 08:06 10:31 10:52 Temperature 98.6 F Pulse Rate 116 H 110 H 124 H Respiratory 18 18 Rate Blood Pressure 110/66 94/58 O2 Sat by Pulse 99 97 92 L Oximetry - Reevaluation(s) Reevaluation #1: 08/22/19 09:31 I did have a long discussion with the patient discussing CT angiogram of the chest rule out PE. Patient understands risk and states that she wants to do a CAT scan because she is concerned about her symptoms. Chest Pain MDM - MDM Patient has persistent tachycardia with no definite acute findings cannot rule out distal branch PE. Patient will be admitted for pulmonology, cardiology evaluation admitted to Dr. Lilly with also consult to [employer]BRIC[employer]INE[employer]. We did discuss case with Dr. Mera. Disposition Clinical Impression: Tachycardia, Dyspnea Disposition: ADMITTED IP TO THIS HOSP Condition: Fair Referrals: Amaury Lilly MD [Primary Care Provider] - 1-2 days
--- NOTE | 2019-08-22 10:24 | CT ---
EXAMINATION TYPE: CT chest angio for PE DATE OF EXAM: 08/22/2019 COMPARISON: Radiograph 08/17/2019 HISTORY: 24-year-old female chest tightness, elevated d-dimer TECHNIQUE: Contiguous axial scanning of the chest performed with IV Contrast, patient injected with 8 0 mL of Isovue 370. Coronal/sagittal MIP reconstructions performed. CT DLP: 303 mGycm Automated exposure control for dose reduction was used. FINDINGS: Heart normal size with small anterior pericardial fluid measuring 6 mm thick. No flattening of the in terventricular septum or reflux of contrast into the hepatic veins. Aorta normal caliber with a conventional arch vessel branching anatomy. Suboptimal opacification of the pulmonary arterial system for adequate assessment of pulmonary emboli . Density is only 145 Hounsfield units. No obvious large central pulmonary embolus. Lobar and more di stal arterial branches are very limited and nondiagnostic. Some residual thymic tissue in the anterior mediastinum. No thoracic lymphadenopathy by CT size crite miguel. No consolidation or pleural effusion. Small hiatal hernia. Mild splenomegaly of 14.5 cm. Bones: No osseous destructive process. IMPRESSION: 1. ESSENTIALLY NONDIAGNOSTIC ASSESSMENT FOR PULMONARY EMBOLI DUE TO THE DENSITY OF THE CONTRAST BOLUS . NO DEFINITE LARGE CENTRALLY LOCATED PULMONARY EMBOLUS. 2. NO ACUTE PULMONARY PROCESS. 3. SMALL HILAR HERNIA AND MILD SPLENOMEGALY OF 14.5 CM.
[2019-08-22] MEDS ORDERED: NALOXONE 0.4 MG/ML 1 ML VIAL IV PRN (11:32)
[2019-08-22] MEDS ORDERED: ACETAMINOPHEN TAB 325 MG TAB PO PRN (11:32)
[2019-08-22] MEDS ORDERED: SODIUM CHLORIDE 0.9% 1,000 ML IV ONE (12:30)
[2019-08-22] MEDS: SODIUM CHLORIDE 0.9% 1,000 ML IV SCH ×2 (12:37→14:39)
--- NOTE | 2019-08-22 14:04 | P.CRDCN ---
History of Present Illness Consult date: 08/22/19 Requesting physician: Amaury Lilly Reason for Consult (text): Palpitations Chief complaint: Palpitations, shortness of breath History of present illness: This is a pleasant 24-year-old female who is at 26 weeks , A0, denies any history of hypertension, no diabetes, no hyperlipidemia. She is a nonsmoker, no alcohol, no drug use. According to the patient she had no c omplications with any of her prior pregnancies or deliveries. She presented to the hospital on this occasion with symptoms of palpitations, shortness of breath and mild chest tightness. CTA of the chest was performed on arrival here which was essentially nondiagnostic for pulmonary embolism due to the density at the contrast bolus, no definite large centrally located pulmonary embolus. No acute pulmonary process. Small hiatal hernia and mild splenomegaly. EKG shows a sinus tachycardia with a heart rate of 110, upon review of the patient's clinical access, it did appear at times that her heart rate was up in the 120s 130s, still sinus tachycardia. Patient does have history of an enlarged thyroid, and thyroid nodules. Blood pressure on arrival here 94/50 with a heart rate of 110, 97% on room air. Blood pressure at the time of my examination, 88/50 with a heart rate of 125. White blood cell count 10.0, hemoglobin 11.4, platelet count 167. D-dimer 1.04. Sodium 137, potassium 3.9, BUN 5, creatinine 0.4. Magnesium 1.9. Troponin 0.012. At the time of my examination in the [facility] room the patient continues to complain of some palpitations, she states it feels like she's having an anxiety attack. Past Medical History Past Medical History: No Reported History, Thyroid Disorder Additional Past Medical History / Comment(s): nodules on thyroid History of Any Multi-Drug Resistant Organisms: None Reported Past Surgical History: No Surgical Hx Reported Past Anesthesia/Blood Transfusion Reactions: No Reported Reaction Past Psychological History: Anxiety Smoking Status: Never smoker Past Alcohol Use History: None Reported Past Drug Use History: None Reported - Past Family History Mother Family Medical History: No Reported History Medications and Allergies Home Medications Medication Instructions Recorded Confirmed Type No Known Home Medications 06/01/19 08/22/19 History Allergies Allergy/AdvReac Type Severity Reaction Status Date / Time No Known Allergies Allergy Verified 08/22/19 09:58 Physical Exam Vitals: Vital Signs Temp Pulse Resp BP Pulse Ox 08/22/19 13:00 98.0 F 93 15 95/55 98 08/22/19 12:23 100 18 88/54 100 08/22/19 12:00 98.5 F 98 15 100/73 100 08/22/19 10:52 124 H 92 L 08/22/19 10:31 110 H 18 94/58 97 08/22/19 08:06 98.6 F 116 H 18 110/66 99 Intake and Output 08/21/19 08/22/19 08/22/19 22:59 06:59 14:59 Other: Weight 85.321 kg PHYSICAL EXAMINATION: GENERAL: When he 4-year-old female in no acute distress at the time of my examination HEENT: Head is atraumatic, normocephalic. Pupils equal, round. Sclera anicteric. Conjunctiva are clear. Mucous membranes of the mouth are moist. Neck is supple. There is no elevated jugular venous pressure. No carotid bruit is heard. HEART EXAMINATION: S1 and S2, tachycardic, CHEST EXAMINATION: Lungs are clear to auscultation and precussion. No chest wall tenderness is noted on palpation or with deep breathing. ABDOMEN: Soft, nontender. Bowel sounds are heard. No organomegaly noted. EXTREMITIES: 2+ peripheral pulses with no evidence of peripheral edema and no calf tenderness noted. NEUROLOGIC patient is awake, alert and oriented 3 . . Results 08/22/19 08:48 08/22/19 08:48 Cardiac Enzymes 08/22/19 08/22/19 Range/Units 08:48 08:48 AST 25 (14-36) U/L Troponin I <0.012 (0.000-0.034) ng/mL Coagulation 08/22/19 Range/Units 08:48 PT 9.5 (9.0-12.0) sec APTT 23.1 (22.0-30.0) sec CBC 08/22/19 Range/Units 08:48 WBC 10.0 (3.8-10.6) k/uL RBC 4.00 (3.80-5.40) m/uL Hgb 11.4 (11.4-16.0) gm/dL Hct 33.4 L (34.0-46.0) % Plt Count 167 (150-450) k/uL Comprehensive Metabolic Panel 08/22/19 Range/Units 08:48 Sodium 137 (137-145) mmol/L Potassium 3.9 (3.5-5.1) mmol/L Chloride 107 (98-107) mmol/L Carbon Dioxide 23 (22-30) mmol/L BUN 5 L (7-17) mg/dL Creatinine 0.47 L (0.52-1.04) mg/dL Glucose 88 (74-99) mg/dL Calcium 8.8 (8.4-10.2) mg/dL AST 25 (14-36) U/L ALT 13 (4-34) U/L Alkaline Phosphatase 91 (38-126) U/L Total Protein 6.6 (6.3-8.2) g/dL Albumin 3.5 (3.5-5.0) g/dL Current Medications Generic Name Dose Route Start Last Admin Trade Name Freq PRN Reason Stop Dose Admin Acetaminophen 650 mg 08/22/19 11:32 Tylenol Tab PO Q6HR PRN Mild Pain or Fever > 100.5 Sodium Chloride 1,000 mls @ 75 mls/hr 08/22/19 11:45 08/22/19 12:37 Saline 0.9% IV 75 mls/hr .[id number] ISELA Administration Naloxone HCl 0.2 mg 08/22/19 11:32 Narcan IV Q2M PRN Opioid Reversal Intake and Output 08/21/19 08/22/19 08/22/19 22:59 06:59 14:59 Other: Weight 85.321 kg Patient Weight 08/23/19 06:59 Weight 85.321 kg 08/22/19 08:48 08/22/19 08:48 EKG Interpretations (text) EKG shows a sinus tachycardia Assessment and Plan Plan: Assessment and plan #1 palpitations, EKG shows a sinus tachycardia with heart rate at times up into the 1:30 range #2 shortness of breath, could be secondary to the tachycardia, we will obtain a chest x-ray, CT a of the chest negative for pulmonary embolism. #3 history of enlarged thyroid with evidence of thyroid nodules #4 cardiac risk factors negative for hypertension, no diabetes, no hyperlipidemi a, patient is a nonsmoker, no alcohol #5 26 weeks , A0 Plan We will obtain a stat echocardiogram with Doppler study, obtain a TSH level, initial troponin was negative, we will repeat to troponins. Obtain chest x-ray. Further recommendations to follow. DNP note has been reviewed, I agree with a documented findings and plan of care. Patient was seen and examined.
--- NOTE | 2019-08-22 14:40 | XR ---
EXAMINATION TYPE: XR chest 2V DATE OF EXAM: 08/22/2019 COMPARISON: 08/17/2019 TECHNIQUE: PA and lateral views submitted. HISTORY: Chest pain FINDINGS: The lungs are clear and there is no pneumothorax, pleural effusion, or focal pneumonia. No overt john lure. Heart size normal. IMPRESSION: 1. No acute process.
--- NOTE | 2019-08-22 16:53 | P.CNPUL ---
History of Present Illness Consult date: 08/22/19 Reason for consult: other Chief complaint: Tachycardia, chest discomfort History of present illness: 24-year-old female patient, 26 week gestation, 5, para 4, presented to the emergency department for evaluation of palpitations, and chest discomfort, patient states she felt her heart racing for last few days, and last couple days she has been having intermittent pressure in her chest. She denied any shortnes s of breath, she denied any fever, denied any cough, no chills, no hemoptysis. EKG in the emergency department showed sinus tachycardia with a rate in the 120s to 130s, without acute ischemic changes, echocardiogram is pending, chest x-ray showed no acute process, CT chest was completed, and he was nondiagnostic for pulmonary embolism related to the density of the contrast bolus. No acute pulmonary process, blood pressures were slightly on the lower side with a blood pressure of 80/50, patient is receiving IV hydration with 0.9 normal saline at a rate of 75 ML per hour, room air pulse ox 100%, lung sounds are clear. No white count, white blood cell count was 10, hemoglobin was 11.4, electrolytes were within normal limits, B1 is 5 creatinine 0.4, d-dimer was 1.04. No significant medical history, patient has no history of smoking, no history of heart disease no history of drug or alcohol abuse, no hypertension, no diabetes no hyperlipidemia. Currently she is resting comfortably on the gurney in the emergency department she is awaiting a bed on a monitored bed. No swelling or tenderness in her calves. We were asked to see the patient in regards to a possibility of pulmonary embolism Review of Systems All systems: negative Constitutional: Denies chills, Denies fever Eyes: denies blurred vision, denies pain Ears, nose, mouth and throat: Denies headache, Denies sore throat Cardiovascular: Reports chest pain, Reports palpitations, Denies shortness of breath Respiratory: Denies cough Gastrointestinal: Denies abdominal pain, Denies diarrhea, Denies nausea, Denies vomiting Genitourinary: Denies dysuria, Denies hematuria Musculoskeletal: Denies myalgias Integumentary: Denies pruritus, Denies rash Neurological: Denies numbness, Denies weakness Psychiatric: Denies anxiety, Denies depression Endocrine: Denies fatigue, Denies weight change Past Medical History Past Medical History: No Reported History, Thyroid Disorder Additional Past Medical History / Comment(s): nodules on thyroid History of Any Multi-Drug Resistant Organisms: None Reported Past Surgical History: No Surgical Hx Reported Past Anesthesia/Blood Transfusion Reactions: No Reported Reaction Past Psychological History: Anxiety Smoking Status: Never smoker Past Alcohol Use History: None Reported Past Drug Use History: None Reported - Past Family History Mother Family Medical History: No Reported History Medications and Allergies Home Medications Medication Instructions Recorded Confirmed Type No Known Home Medications 06/01/19 08/22/19 History Allergies Allergy/AdvReac Type Severity Reaction Status Date / Time No Known Allergies Allergy Verified 08/22/19 09:58 Physical Exam Vitals: Vital Signs Temp Pulse Resp BP Pulse Ox 08/22/19 14:00 98.7 F 113 H 18 96/68 99 08/22/19 13:00 98.0 F 93 15 95/55 98 08/22/19 12:23 100 18 88/54 100 08/22/19 12:00 98.5 F 98 15 100/73 100 08/22/19 10:52 124 H 92 L 08/22/19 10:31 110 H 18 94/58 97 08/22/19 08:06 98.6 F 116 H 18 110/66 99 Intake and Output 08/22/19 08/22/19 08/22/19 06:59 14:59 22:59 Other: Weight 85.321 kg GENERAL EXAM: Alert, very pleasant, 24-year-old white female, resting on the gurney in the emergency department the room air pulse ox 100% comfortable in no apparent distress. HEAD: Normocephalic/atraumatic. EYES: Normal reaction of pupils, equal size. Conjunctiva pink, sclera white. NOSE: Clear with pink turbinates. THROAT: No erythema or exudates. NECK: No masses, no JVD, no thyroid enlargement, no adenopathy. CHEST: No chest wall deformity. Symmetrical expansion. LUNGS: Equal air entry with no crackles, wheeze, rhonchi or dullness. CVS: Regular rate and rhythm, normal S1 and S2, no gallops, no murmurs, no rubs. Sinus tachycardia with a rate of 120-120 BPM ABDOMEN: Soft, nontender. No hepatosplenomegaly, normal bowel sounds, no guarding or rigidity. EXTREMITIES: No clubbing, no edema, no cyanosis, 2+ pulses and upper and lower extremities. MUSCULOSKELETAL: Muscle strength and tone normal. SPINE: No scoliosis or deformity SKIN: No rashes CENTRAL NERVOUS SYSTEM: Alert and oriented -3. No focal deficits, tone is normal in all 4 extremities. PSYCHIATRIC: Alert and oriented -3. Appropriate affect. Intact judgment and insight. Results - Laboratory Findings CBC and BMP: 08/22/19 08:48 08/22/19 08:48 PT/INR, D-dimer PT 9.5 sec (9.0-12.0) 08/22/19 08:48 INR 0.9 (<1.2) 08/22/19 08:48 D-Dimer 1.04 mg/L FEU (<0.60) H 08/22/19 08:48 Abnormal lab findings: Abnormal Labs 08/22/19 08/22/19 08/22/19 08:48 08:48 08:48 Hct 33.4 L Neutrophils # 8.1 H D-Dimer 1.04 H BUN 5 L Creatinine 0.47 L - Diagnostic Findings Chest x-ray: report reviewed, image reviewed CT scan - chest: report reviewed, image reviewed Additional studies: EKG reviewed Assessment and Plan Plan: Assessment: #1. Tachycardia, palpitations of unclear etiology. EKG showed sinus tachycardia and no acute ischemic changes, echocardiogram is pending, CTA was nondiagnostic for pulmonary embolism, chest x-ray was negative for any acute process. TSH within normal limits #2. Elevated d-dimer, nonspecific, doubt underlying pulmonary embolism although CTA chest was nondiagnostic for PE #3. Intrauterine , at 26 weeks of gestation #4. History of thyroid nodules, TSH was within normal limits this admission #5. History of anxiety Plan: Will await the results of the echocardiogram, chest x-ray and CTA chest have been reviewed, doubt possibility of underlying pulmonary embolism. No acute pulmonary process. Continue monitoring heart rate, etiology swelling, follow-up troponins are pending. No pulmonary complaints, no cough, no congestion, no hemoptysis. Will continue to follow I performed a history & physical examination of the patient and discussed their management with my nurse practitioner, Roxana Jordan. I reviewed the nurse practitioner's note and agree with the documented findings and plan of care. Lung sounds are positive for clear lung soubds. The findings and the impression was discussed with the patient. I attest to the documentation by the nurse practitioner. Time with Patient: Greater than 30
--- NOTE | 2019-08-22 18:01 | P.HPIM ---
History of Present Illness 24-year-old female has complaints of shortness of breath with chest pain tachycardia for 1 week. Patient had ER visit earlier in the week was sent home. Cardiology pulmonology and gynecology seen patient. Patient was offered [facility] sferred to tertiary center for hiatus patient's patient declined. Patient is 26 weeks this is her fifth . D-dimer elevated CT the chest nondiagnostic Review of Systems Cardiovascular: Reports chest pain, Reports palpitations Past Medical History Past Medical History: No Reported History, Thyroid Disorder Additional Past Medical History / Comment(s): nodules on thyroid History of Any Multi-Drug Resistant Organisms: None Reported Past Surgical History: No Surgical Hx Reported Past Anesthesia/Blood Transfusion Reactions: No Reported Reaction Past Psychological History: Anxiety Smoking Status: Never smoker Past Alcohol Use History: None Reported Past Drug Use History: None Reported - Past Family History Mother Family Medical History: No Reported History Medications and Allergies Home Medications Medication Instructions Recorded Confirmed Type No Known Home Medications 06/01/19 08/22/19 History Allergies Allergy/AdvReac Type Severity Reaction Status Date / Time No Known Allergies Allergy Verified 08/22/19 09:58 Physical Exam Vitals: Vital Signs Temp Pulse Pulse Resp BP BP Pulse Ox 08/22/19 16:00 100.0 F H 116 H 16 92/49 08/22/19 14:00 98.7 F 113 H 18 96/68 99 08/22/19 13:00 98.0 F 93 15 95/55 98 08/22/19 12:23 100 18 88/54 100 08/22/19 12:00 98.5 F 98 15 100/73 100 08/22/19 10:52 124 H 92 L 08/22/19 10:31 110 H 18 94/58 97 08/22/19 08:06 98.6 F 116 H 18 110/66 99 Intake and Output 08/22/19 08/22/19 08/22/19 06:59 14:59 22:59 Other: Weight 85.321 kg - Constitutional General appearance: mild distress - EENT Eyes: PERRLA Ears: bilateral: normal - Neck Neck: normal ROM - Respiratory Respiratory: bilateral: CTA - Cardiovascular Rhythm: regular - Gastrointestinal abdomen - Integumentary Integumentary: normal - Neurologic Neurologic: CNII-XII intact - Musculoskeletal Musculoskeletal: gait normal - Psychiatric Psychiatric: A&O x's 3, appropriate affect, intact judgment & insight Results CBC & Chem 7: 08/22/19 08:48 08/22/19 08:48 Labs: Abnormal Lab Results - Last 24 Hours (Table) 08/22/19 08/22/19 08/22/19 Range/Units 08:48 08:48 08:48 Hct 33.4 L (34.0-46.0) % Neutrophils # 8.1 H (1.3-7.7) k/uL D-Dimer 1.04 H (<0.60) mg/L FEU BUN 5 L (7-17) mg/dL Creatinine 0.47 L (0.52-1.04) mg/dL CT scan - chest: report reviewed Assessment and Plan Plan: Assessment 26 weeks Tachycardia Dyspnea with chest pain Hypothyroidism Plan Continue consultation with cardiology pulmonology and gynecology
--- NOTE | 2019-08-22 18:45 | US ---
EXAMINATION TYPE: US OB >= 14 wk fetus DATE OF EXAM: 08/22/2019 COMPARISON: US 04/15/2019 CLINICAL HISTORY: maternal tachycardiaMaternal tachycardia. . TECHNIQUE: Transabdominal (TA) GESTATIONAL AGE / DATING Physician Established: (26 weeks/3 days) EDC: 11/25/2019 Dates by LMP: (26 weeks/3 days) EDC: 11/25/2019 Dates by First Scan: (26 weeks/1 day) EDC: 11/27/2019 Dates by Current Scan: (26 weeks/1day) EDC: 11/27/2019 SURVEY IUP: Single PLACENTA: Anterior PREVIA: No Previa seen CHARO: 14.87 cm Normal CERVICAL LENGTH (transabdominal: norm > 3.0cm): 4.8 cm BIOMETRY PRESENTATION: Breech BPD: 6.37 cm 25 weeks / 5 days HC: 24.50 cm 26 weeks / 4 days AC: 22.30 cm 26 weeks / 5 days FL: 4.94 cm 26 weeks / 5 days ESTIMATED WEIGHT IN GRAMS: 960.86 grams ESTIMATED WEIGHT IN LBS/OZ: 2 lbs. 2 oz. WEIGHT PERCENTAGE BASED ON ESTABLISHED DATES: 46.3% HC/AC: 1.10 Normal FL/AC: 22.13 Normal HEART RATE: 150 bpm RHYTHM: Normal IMPRESSION: The ultrasound gestational age is 26 weeks and 1 day. There is satisfactory growth compared to old ex am.
[2019-08-22] MEDS: ONDANSETRON 4 MG/2 ML VIAL IVP PRN (19:03)
--- NOTE | 2019-08-22 19:12 | P.OBCN ---
History of Present Illness Consult date: 08/22/19 Requesting physician: Cindy Do Chief complaint: Maternal tachycardia History of present illness: Alma Delia is a 24-year-old at 26 weeks gestation who arrived to the emergency room complaining of lightheadedness and chest discomfort and was noted to be significant leak tachycardic with heart rate between 09/16/1939. She relates that these symptoms began approximately on the day after [place] and has slowly progressed. She was seen in the emergency room and was told that they believe she was having anxiety attack and therefore the discharged her prior. We had scheduled an appointment with cardiology for same, however symptoms recurred today she was brought back to the emergency room. She was admitted to medicine service with cardiology and pulmonology consult. Will likely need GI as well as she had hematemesis while in the emergency room. I did discuss this with PCP. A ultrasound has been ordered and heart rate had earlier been noted to be normal. She relates that this afternoon she began having significant chest discomfort and some dyspnea and when she was brought to emergency room a spiral CT was done which is nondiagnostic for pulmonary embolus. However, she also had a d-dimer was mildly elevated 1.04. This however, is likely normal for a second trimester regnancy. She shows no signs of dyspnea at this time. On my initial evaluation she was having a tachycardic episode in the 140s with her sitting up in bed and throwing up. She relates that she is to run 3-4 times today and that she has been nauseous through the day as well. There was some blood in her fluid, it did not appear to be gastric fluid but mostly it was split and likely is esophageal in nature, but will need evaluation from GI just the same. I did speak with maternal medicine service in [place] and there. No other recommendations and while I did offer to transfer her to their service she has refused. She relates that she cannot go as she has other children in town and she cannot leave them. I did discuss with her that since there was not going to be a lot of difference between what the care of be that was likely fine but that she may ultimately need transfer if things change torted deteriorated. On physical exam heart is regular but tachycardic and in my second evaluation she was resting on her right side in semi-mendez and heart rate was down in the 105 to 1:15 range and she had far fewer symptoms. It is possible that she simply has significant anxiety as 1 her heart rate was very high she was more anxious but its unclear if the anxiety is causing the symptoms were the symptoms are caused anxiety. Lungs otherwise clear Abdomen soft gravid uterus noted. Extremities without pain. Assessment intrauterine 26 weeks' gestation with maternal tachycardia of unknown etiology. [place] plan your medical management and pending echocardiogram and final evaluations from other consultants. Past Medical History Past Medical History: No Reported History, Thyroid Disorder Additional Past Medical History / Comment(s): nodules on thyroid History of Any Multi-Drug Resistant Organisms: None Reported Past Surgical History: No Surgical Hx Reported Past Anesthesia/Blood Transfusion Reactions: No Reported Reaction Past Psychological History: Anxiety Smoking Status: Never smoker Past Alcohol Use History: None Reported Past Drug Use History: None Reported - Past Family History Mother Family Medical History: No Reported History Medications and Allergies Home Medications Medication Instructions Recorded Confirmed Type No Known Home Medications 06/01/19 08/22/19 History Allergies Allergy/AdvReac Type Severity Reaction Status Date / Time No Known Allergies Allergy Verified 08/22/19 09:58 Exam Osteopathic Statement: *. No significant issues noted on an osteopathic structural exam other than those noted in the History and Physical/Consult. Vital Signs Temp Pulse Pulse Resp BP BP Pulse Ox 08/22/19 16:00 100.0 F H 116 H 16 92/49 08/22/19 14:00 98.7 F 113 H 18 96/68 99 08/22/19 13:00 98.0 F 93 15 95/55 98 08/22/19 12:23 100 18 88/54 100 08/22/19 12:00 98.5 F 98 15 100/73 100 08/22/19 10:52 124 H 92 L 08/22/19 10:31 110 H 18 94/58 97 08/22/19 08:06 98.6 F 116 H 18 110/66 99 Intake and Output 08/22/19 08/22/19 08/22/19 06:59 14:59 22:59 Other: # Voids 1 Weight 85.321 kg Results Result Diagrams: 08/22/19 08:48 08/22/19 08:48 Abnormal Lab Results - Last 24 Hours (Table) 08/22/19 08/22/19 08/22/19 Range/Units 08:48 08:48 08:48 Hct 33.4 L (34.0-46.0) % Neutrophils # 8.1 H (1.3-7.7) k/uL D-Dimer 1.04 H (<0.60) mg/L FEU BUN 5 L (7-17) mg/dL Creatinine 0.47 L (0.52-1.04) mg/dL
[2019-08-22 22:44] LABS: Amphetamine Screen,Urine Not Detected (NotDetected); Barbiturate Screen,Urine Not Detected (NotDetected); Benzodiazepines Screen,Urine Not Detected (NotDetected); Cocaine Screen,Urine Not Detected (NotDetected); Methadone Screen, Urine Not Detected (NotDetected); Opiate Screen,Urine Not Detected (NotDetected); Oxycodone Screen, Urine Not Detected (NotDetected); Phencyclidine Screen,Urine Not Detected (NotDetected); Tricyclic Antidepressant,Urine Not Detected (NotDetected); Urn Cannabinoid Scrn Not Detected (NotDetected)
[2019-08-23] MEDS: ONDANSETRON 4 MG/2 ML VIAL IVP PRN (05:13)
[2019-08-23 07:51] VITALS: RESP 18
--- NOTE | 2019-08-23 10:56 | P.PN ---
Subjective Progress Note Date: 08/23/19 Principal diagnosis: Palpitations On August 23, 2019, patient seen in follow up, less tachycardic on today's exam, in sinus mechanism with rate 90-100's. Hemodynamically stable. Lungs are clear, no shortness of breath, no fever, no chills. No calf swelling or tenderness. Echocardiogram taken, results pending. Objective - Vital Signs Vital signs: Vital Signs Temp 98 F 08/23/19 07:46 Pulse 104 H 08/23/19 07:46 Resp 18 08/23/19 07:46 BP 88/52 08/23/19 07:46 Pulse Ox 96 08/23/19 07:46 Intake & Output 08/22/19 08/23/19 08/23/19 18:59 06:59 18:59 Intake Total 450 500 Balance 450 500 Weight 85.321 kg 83.8 kg Intake: Intake, IV Titration 450 Amount Sodium Chloride 0.9% 1, 450 000 ml @ 75 mls/hr IV . [id number] [facility] Rx#:[id number] Oral 500 Other: Voiding Method Toilet # Voids 1 1 - Exam GENERAL EXAM: Alert, very pleasant, 24-year-old white female, resting the room air pulse ox 100% comfortable in no apparent distress. HEAD: Normocephalic/atraumatic. EYES: Normal reaction of pupils, equal size. Conjunctiva pink, sclera white. NOSE: Clear with pink turbinates. THROAT: No erythema or exudates. NECK: No masses, no JVD, no thyroid enlargement, no adenopathy. CHEST: No chest wall deformity. Symmetrical expansion. LUNGS: Equal air entry with no crackles, wheeze, rhonchi or dullness. CVS: Regular rate and rhythm, normal S1 and S2, no gallops, no murmurs, no rubs. Sinus tachycardia with a rate of 90-100's BPM ABDOMEN: Soft, nontender. No hepatosplenomegaly, normal bowel sounds, no guarding or rigidity. EXTREMITIES: No clubbing, no edema, no cyanosis, 2+ pulses and upper and lower extremities. MUSCULOSKELETAL: Muscle strength and tone normal. SPINE: No scoliosis or deformity SKIN: No rashes CENTRAL NERVOUS SYSTEM: Alert and oriented -3. No focal deficits, tone is normal in all 4 extremities. PSYCHIATRIC: Alert and oriented -3. Appropriate affect. Intact judgment and insight. - Labs CBC & Chem 7: 08/22/19 08:48 08/22/19 08:48 Assessment and Plan Plan: Assessment: #1. Tachycardia, palpitations of unclear etiology. EKG showed sinus tachycardia and no acute ischemic changes, echocardiogram is pending, CTA was nondiagnostic for pulmonary embolism, chest x-ray was negative for any acute process. TSH within normal limits #2. Elevated d-dimer, nonspecific, doubt underlying pulmonary embolism although CTA chest was nondiagnostic for PE #3. Intrauterine , at 26 weeks of gestation #4. History of thyroid nodules, TSH was within normal limits this admission #5. History of anxiety Plan: Will await the results of the echocardiogram, patient is without any specific complaints, no fever, no shortness of breath, no cough. Less tachycardiac on today's exam. Two sets of troponins are negative, cardiology is following, CXR and CTA chest showed no acute pulmonary process, nondiagnostic for PE. We will await results of echo, will follow I performed a history & physical examination of the patient and discussed their management with my nurse practitioner, Roxana Jordan. I reviewed the nurse practitioner's note and agree with the documented findings and plan of care. Lung sounds are positive for clear lung soubds. The findings and the impression was discussed with the patient. I attest to the documentation by the nurse practitioner. Time with Patient: Less than 30
--- NOTE | 2019-08-23 11:13 | P.PN ---
Subjective Progress Note Date: 08/23/19 This is a pleasant 24-year-old female who is at 26 weeks , A0, denies any history of hypertension, no diabetes, no hyperlipidemia. She is a nonsmoker, no alcohol, no drug use. According to the patient she had no complications with any of her prior pregnancies or deliveries. She presented to the hospital on this occasion with symptoms of palpitations, shortness of breath and mild chest tightness. CTA of the chest was performed on arrival here which was essentially nondiagnostic for pulmonary embolism due to the density at the contrast bolus, no definite large centrally located pulmonary embolus. No acute pulmonary process. Small hiatal hernia and mild splenomegaly. EKG shows a sinus tachycardia with a heart rate of 110, upon review of the patient's clinical access, it did appear at times that her heart rate was up in the 120s 130s, still sinus tachycardia. Patient does have history of an enlarged thyroid, and thyroid nodules. Blood pressure on arrival here 94/50 with a heart rate of 110, 97% on room air. Blood pressure at the time of my examination, 88/50 with a heart rate of 125. White blood cell count 10.0, hemoglobin 11.4, platelet count 167. D-dimer 1.04. Sodium 137, potassium 3.9, BUN 5, creatinine 0.4. Magnesium 1.9. Troponin 0.012. At the time of my examination in the emergency room the patient continues to complain of some palpitations, she states it feels like she's having an anxiety attack. 08/23/2019 Patient seen and examined this morning, echocardiogram with Doppler study remains pending. Her heart rate continues to be in the 100 210 range. We will add Lopressor 25 mg in the morning and 12-1/2 in the evening to her medication regime. Our recommendation is that the patient discontinue the Lopressor 3 weeks before her expected date of delivery. Her TSH was normal we will also check a free T4. Overall the patient feels well, she denies any palpitations this morning, and her breathing is overall stable. Objective - Vital Signs Vital signs: Vital Signs Temp 98 F 08/23/19 07:46 Pulse 104 H 08/23/19 07:46 Resp 18 08/23/19 07:46 BP 88/52 08/23/19 07:46 Pulse Ox 96 08/23/19 07:46 Intake & Output 08/22/19 08/23/19 08/23/19 18:59 06:59 18:59 Intake Total 450 500 Balance 450 500 Weight 85.321 kg 83.8 kg Intake: Intake, IV Titration 450 Amount Sodium Chloride 0.9% 1, 450 000 ml @ 75 mls/hr IV . [id number] [facility] Rx#:[id number] Oral 500 Other: Voiding Method Toilet # Voids 1 1 - Exam PHYSICAL EXAMINATION: GENERAL: When he 4-year-old female in no acute distress at the time of my examination HEENT: Head is atraumatic, normocephalic. Pupils equal, round. Sclera anicteric. Conjunctiva are clear. Mucous membranes of the mouth are moist. Neck is supple. There is no elevated jugular venous pressure. No carotid bruit is heard. HEART EXAMINATION: S1 and S2, tachycardic, CHEST EXAMINATION: Lungs are clear to auscultation and precussion. No chest wall tenderness is noted on palpation or with deep breathing. ABDOMEN: Soft, nontender. Bowel sounds are heard. No organomegaly noted. EXTREMITIES: 2+ peripheral pulses with no evidence of peripheral edema and no calf tenderness noted. NEUROLOGIC patient is awake, alert and oriented 3 . . - Labs CBC & Chem 7: 08/22/19 08:48 08/22/19 08:48 Assessment and Plan Plan: Assessment and plan #1 palpitations, EKG shows a sinus tachycardia with heart rate at times up into the 1:30 range #2 shortness of breath, could be secondary to the tachycardia, we will obtain a chest x-ray, CT a of the chest negative for pulmonary embolism. #3 history of enlarged thyroid with evidence of thyroid nodules #4 cardiac risk factors negative for hypertension, no diabetes, no hyper lipidemia, patient is a nonsmoker, no alcohol #5 26 weeks , A0 Plan We will review the echocardiogram with Doppler study, obtain a free t4 level.add Lopressor 25 mg in the morning and 12.5mg in the evening to her medication regime. DNP note has been reviewed, I agree with a documented findings and plan of care. Patient was seen and examined.
[2019-08-23] MEDS ORDERED: PANTOPRAZOLE 40 MG TABLET PO SCH (11:45)
[2019-08-23] MEDS ORDERED: METOPROLOL TARTRATE 25 MG TAB PO STA (11:57)
--- NOTE | 2019-08-23 13:01 | ECHOF ---
Referral Reason:assess lvf MEASUREMENTS -------- HEIGHT: 160.0 cm WEIGHT: 85.3 kg BP: RVIDd: 3.4 cm (< 3.3) IVSd: 0.9 cm (0.6 - 1.1) LVIDd: 4.2 cm (3.9 - 5.3) LVPWd: 1.3 cm (0.6 - 1.1) IVSs: 1.4 cm LVIDs: 2.8 cm LVPWs: 1.4 cm LA Diam: 3.8 cm (2.7 - 3.8) LAESV Index (A-L): 30.60 ml/m Ao Diam: 2.8 cm (2.0 - 3.7) AV Cusp: 1.8 cm (1.5 - 2.6) LA Diam: 4.4 cm (2.7 - 3.8) MV EXCURSION: 18.162 mm (> 18.000) MV EF SLOPE: 91 mm/s (70 - 150) EPSS: 0.3 cm MV E Jerry: 0.87 m/s MV DecT: 117 ms MV A Jerry: 0.71 m/s MV E/A Ratio: 1.23 RAP: 5.00 mmHg RVSP: 20.37 mmHg FINDINGS -------- Sinus rhythm. This was a technically good study. LV size, wall thickness and systolic function are normal, with an EF greater than 55%. The left obi tricular size is normal. The diastolic filling pattern is normal for the age of the patient 9.32. The right ventricle is normal in size. The left atrium is mildly dilated. LA is midly dilated 29-33ml/m2. The right atrial size is normal. The aortic valve is trileaflet, and appears structurally normal. No aortic stenosis or regurgitation. Mild mitral regurgitation is present. Mild tricuspid regurgitation present. Right ventricular systolic pressure is normal at < 35 mmHg. There is no evidence of pulmonary hypertension. There is no pulmonic regurgitation present. The aortic root size is normal. There is a trivial pericardial effusion present. CONCLUSIONS -------- 1. Sinus rhythm. 2. This was a technically good study. 3. LV size, wall thickness and systolic function are normal, with an EF greater than 55%. 4. The left ventricular size is normal. 5. The diastolic filling pattern is normal for the age of the patient 9.32 6. The right ventricle is normal in size. 7. The left atrium is mildly dilated. 8. LA is midly dilated 29-33ml/m2. 9. The right atrial size is normal. 10. The aortic valve is trileaflet, and appears structurally normal. No aortic stenosis or regurgitat ion. 11. Mild mitral regurgitation is present. 12. Mild tricuspid regurgitation present. 13. Right ventricular systolic pressure is normal at < 35 mmHg. 14. There is no evidence of pulmonary hypertension. 15. There is no pulmonic regurgitation present. 16. The aortic root size is normal. 17. There is a trivial pericardial effusion present. [employer]ACHT: Sunitha Chacon RDCS
--- NOTE | 2019-08-23 15:12 | PN ---
PROGRESS NOTE This is a 24-year-old lady who is in the second trimester of her , came in because of some palpitations and also was found to be in sinus tachycardia. Patient is not a smoker, does not consume any alcohol or use any recreational drugs, but she does drink caffeine occasionally. Her rhythm appears to be basically sinus tachycardia and she is in the second trimester of her . I am recommending that we use a small dose of beta katarina in the form of metoprolol tartrate 25 mg in the morning and 12.5 in the evening and this will hopefully keep her rate down. She can be discharged on this medicine and I will see her in the office and perform a Holter within 1 [address] She had a CT angiography of the chest performed apparently and there was no evidence of any pulmonary embolism. There was no large central pulmonary embolism noted. The patient at the time of my evaluation he is asymptomatic. I am recommending that we will review the echocardiogram. Check another free T4 and make sure her thyroids are normal and she can then be discharged and I will see her in the office in a week and perform a Holter. She will be discharged to 25 mg of metoprolol tartrate in the morning, 12.5 in the evening. Advised the patient to refrain from any caffeine intake. Blood pressure today was 108/70, pulse rate of about 104, and no JVD, S1-S2 heard normally. Slightly tachycardic. No significant murmurs. Lungs are clear. Rest of physical exam unchanged. MMODL / IJN: [id number] /
[2019-08-23 15:25] VITALS: BP 94/53; PULSE 91; TEMP 99.2
[2019-08-23] MEDS: SODIUM CHLORIDE 0.9% 1,000 ML IV SCH (15:26)
[2019-08-23] MEDS ORDERED: METOPROLOL TARTRATE 12.5 MG TAB PO SCH (16:00)
--- NOTE | 2019-08-23 17:46 | P.DS ---
Providers Date of admission: 08/22/19 11:32 Expected date of discharge: 08/23/19 Attending physician: Amaury Lilly Consults: 08/22/19 11:32 Consult Physician Routine Consulting Provider: Cindy Do Consult Reason/Comments: Dyspnea, tachycardia Do you want consulting provider notified?: Yes Consult Physician Urgent Consulting Provider: Monico Peoples Consult Reason/Comments: Dyspnea, tachycardia Do you want consulting provider notified?: Yes 08/22/19 11:35 Consult Physician Routine Consulting Provider: Андрей Holland Consult Reason/Comments: Established patient, Do you want consulting provider notified?: Yes 08/23/19 11:48 Consult Physician Urgent Consulting Provider: Samantha Ospina Consult Reason/Comments: hematemesis gerd Do you want consulting provider notified?: Yes Primary care physician: Amaury Lilly [facility] Course: 24-year-old female presented emergency room with complaints of shortness of breath chest pain and tachycardia. This is the second visit to the emergency room. Patient is 26 weeks . 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 Holland patient was started on beta katarina has controlled heart rate Assessment 26 weeks Tachycardia with dyspnea History of hypothyroidism GERD Plan Follow-up with cardiology Dr. Holland and family physician Dr. Amaury Lilly Patient Condition at Discharge: Fair Plan - Discharge Summary Discharge Rx Participant: No New Discharge Prescriptions: New Metoprolol Tartrate [Lopressor] 12.5 mg PO DAILY@1600 #30 tab Metoprolol Tartrate [Lopressor] 25 mg PO DAILY #30 tab Pantoprazole [Protonix] 40 mg PO AC-BRKFST #30 tablet.dr Discharge Medication List Metoprolol Tartrate [Lopressor] 12.5 mg PO DAILY@1600 #30 tab 08/23/19 [Rx] Metoprolol Tartrate [Lopressor] 25 mg PO DAILY #30 tab 08/23/19 [Rx] Pantoprazole [Protonix] 40 mg PO AC-BRKFST #30 tablet. 08/23/19 [Rx] Follow up Appointment(s)/Referral(s): Amaury Lilly MD [Primary Care Provider] - 08/25/19 11:40 am () Андрей Holland DO [Family Provider] - 08/26/19 3:30 pm () Peggy Snyder MD [STAFF PHYSICIAN] - 1 Week (Spoke to matrix inspector. Office will call with appointment time) Activity/Diet/Wound Care/Special Instructions: Pt is cleared by cardiology, and OB
--- NOTE | 2019-08-23 21:51 | CONS ---
CONSULTATION DATE OF SERVICE: 08/23/2019 REQUESTING PHYSICIAN: Amaury Lilly MD REASON FOR CONSULTATION: Atypical chest pain and heartburn. HISTORY OF PRESENT ILLNESS: The patient is a 24-year-old pleasant white female, who is 26 weeks of gestation, came into emergency room yesterday complaining of chest pain, throat discomfort, chest tightness, and some palpitations. She was seen by Cardiology and had an echocardiogram done today, the results of which are still pending. In the meantime, she has been complaining of severe heartburn. She has been taking Tums and Rolaids at home for the last two or three weeks' duration. She never had these symptoms during her prior . Following admission to the hospital, she was started on Protonix 40 mg daily and her symptoms are much better today. She reports no nausea or vomiting. No abdominal pain. No rectal bleeding or melena. MEDICATIONS: Medications at home, unremarkable. PAST MEDICAL HISTORY: Thyroid disorder. PAST SURGICAL HISTORY: None. SOCIAL HISTORY: No smoking. No alcohol use. FAMILY HISTORY: Mother is healthy. REVIEW OF SYSTEMS: CARDIOPULMONARY: She had chest pain but no further chest pain. No shortness of breath. GENITOURINARY: No dysuria or hematuria. MUSCULOSKELETAL: Unremarkable. SKIN: Unremarkable. ENDOCRINE: Unremarkable. PSYCHIATRIC: Unremarkable. NEUROLOGY: Unremarkable. ENT/VISION: Unremarkable. CONSTITUTIONAL: No recent weight loss. No fever, chills, night sweats. PHYSICAL EXAMINATION: On physical examination, she appears comfortable. Blood pressure 105/58, pulse rate 101, afebrile. HEENT: Examination unremarkable. Conjunctivae pink. Sclerae anicteric. Oral cavity, no lesions. NECK: No JVD or lymph node enlargement. CHEST: Clear to auscultation. HEART: Regular rate and rhythm. ABDOMEN: Soft. Bowel sounds are positive. Uterus up to the umbilicus. EXTREMITIES: No pedal edema. SKIN: No rashes. NEUROLOGIC: Alert and oriented x3. No focal deficits. LABS/IMAGING: Labs done at the time of admission to the hospital, WBC 10, hemoglobin 11.4, platelets normal. Basic metabolic panel is within normal limits. Troponin is less than 0.012. IMPRESSION: 1. Heartburn/atypical chest pain related to gastroesophageal reflux disease that is aggravated with this . Presently on Protonix 40 mg daily, doing much better. 2. Palpitations and chest pain. Cardiology following the patient closely. She had a 2D echocardiogram done today, the results of which are still pending. 3. Twenty-six weeks of gestation. RECOMMENDATIONS: 1. Advised to continue with Protonix 40 mg daily to be taken half hour before breakfast on a daily basis. 2. Antireflux measures. 3. Small frequent meals. 4. Diet modification. 5. The patient can be discharged home from GI point of view and she can follow up in the office as needed if she has worsening symptoms. Thank you for this consultation. MMCHECOL / IJN: [id number] /
[2019-08-24] MEDS ORDERED: METOPROLOL TARTRATE 25 MG TAB PO SCH (09:00)
== END 2019-08-23 18:14 | disposition home or self-care (01) ==
LOC: EC 07:56 → 3SCARD 11:32 → INTOOBSV 11:32 → UNDOADMIN 11:32 → 3SCARD 18:06 → UNDODISIN 08-23 18:14
PROVIDERS: ADMIT Family Medicine; ATTEND Family Medicine
DX: O99.412 Diseases of the circulatory system complicating pregnancy, second trimester (principal); O99.612 Diseases of the digestive system complicating pregnancy, second trimester; K92.89 Other specified diseases of the digestive system; O99.342 Other mental disorders complicating pregnancy, second trimester; O99.282 Endocrine, nutritional and metabolic diseases complicating pregnancy, second trimester; R00.0 Tachycardia, unspecified; R06.00 Dyspnea, unspecified; E03.9 Hypothyroidism, unspecified; F41.1 Generalized anxiety disorder; K21.9 Gastro-esophageal reflux disease without esophagitis; Z79.899 Other long term (current) drug therapy; E04.1 Nontoxic single thyroid nodule; Z3A.26 26 weeks gestation of pregnancy
CPT/HCPCS: 96376; 96361 ×3; 96374; 99285; 36415; 93005; 93306; 85379; 84439; 80053; 83735; 84443; 84484; 85025; 85610; 85730; 81003; 80306; 87502; 71046; 76805; 71275; G0378 ×2; J2405 ×2; Q9967; 96360

== ENCOUNTER → 2019-09-13 | Outpatient (CLI) | payer OTHER ==
[2019-09-13 10:09] LABS: HCT 32.4 % (34.0-46.0); HGB 10.1 gm/dL (11.4-16.0); Hypochromasia Slight; MCH 25.7 pg (25.0-35.0); MCHC 31.1 g/dL (31.0-37.0); MCV 82.8 fL (80.0-100.0); Mean Platelet Volume 9.5; Platelet Count 174 k/uL (150-450); Poikilocytosis Slight; RBC 3.91 m/uL (3.80-5.40); RDW 14.2 % (11.5-15.5); WBC 8.7 k/uL (3.8-10.6)
== END | disposition home or self-care (01) ==
LOC: LABWHC1 08:14
PROVIDERS: ATTEND Obstetrics & Gynecology
DX: Z34.82 Encounter for supervision of other normal pregnancy, second trimester (principal)
CPT/HCPCS: 36415; 82950; 85027

== ENCOUNTER → 2019-11-01 | Outpatient (CLI) | payer OTHER ==
[2019-11-01 12:47] VITALS: BP 118/79; PULSE 116; RESP 18; TEMP 97.4
== END | disposition home or self-care (01) ==
LOC: FBPOP 12:00
PROVIDERS: ATTEND Obstetrics & Gynecology
DX: Z53.9 Procedure and treatment not carried out, unspecified reason (principal)

== ENCOUNTER 2019-11-17 11:39 | Outpatient (CLI) | payer OTHER ==
[2019-11-17 13:19] VITALS: BP 108/63; PULSE 94; RESP 18; TEMP 98.3
--- NOTE | 2019-11-23 12:18 | P.MSEPDOC ---
Presenting Problems - Arrival Data Date of Arrival on Unit: 11/17/19 Time of Arrival on Unit: 11:55 Mode of Transport: Ambulatory - Complaint OB-Reason for Admission/Chief Complaint: Other Comment: maternal tachycardia on metropolol Medical History - Information : 5 Para: 4 Term: 4 : 0 Abortions: Spontaneous or Elective: 0 Number of Living Children: 4 - Gestational Age Gestational Age by BRITNEY (wks/days): 38 Weeks and 6 Days Review of Systems - Review of Systems Constitutional: No problems Breast: No problems ENT: No problems Cardiovascular: No problems Respiratory: No problems Gastrointestinal: No problems Genitourinary: No problems Musculoskeletal: No problems Neurological: No problems Skin: No problems Comment: no tachycardia noted in triage today Vital Signs - Temperature Temperature: 98.3 F Temperature Source: Oral - Pulse Right Sitting Brachial Pulse Rate: 94 Pulse Assessment Method: Automatic Cuff - Respirations Respiratory Rate: 18 Oxygen Delivery Method: Room Air O2 Sat by Pulse Oximetry: 96 - Blood Pressure Right Arm Sitting Blood Pressure: 108/63 Blood Pressure Mean: 78 Blood Pressure Source: Automatic Cuff Medical Screen Scoring (Pre) - Cervical Exam Dilation: 1-3 cm = 1 - Uterine Contractions Frequency: N/A Duration: N/A Intensity: N/A - Maternal Vital Signs Maternal Temperature: N/A Maternal Blood Pressure: N/A Signs of Preeclampsia: N/A Maternal Respirations: N/A - Maternal Trauma Maternal Trauma: N/A - Assessment - Baby A Baseline FHR: 125 Heart Rate - NICHD Category: Category I (Normal) = 0 - Total Score - Baby A Total Score - Baby A: 1 - Total Score - Baby B Total Score - Baby B: 1 - Total Score - Baby C Total Score - Baby C: 1 - Level of Risk - Baby A Level of Risk - Baby A: Low (0-5) - Level of Risk - Baby B Level of Risk - Baby B: Low (0-5) - Level of Risk - Baby C Level of Risk - Baby C: Low (0-5) - Pain Assessment Pain Scale Used: Numeric (1 - 10) Pain Intensity: 0 Pain Management Goal: 3 Physician Notification (Pre) - Physician Notified Physician Notified Date: 11/17/19 Physician Notified Time: 13:15 New Order Received: Yes - Notification Comment Comment: Dc home. pt to return with continued or increased symptoms. Disposition - Disposition OB Disposition: Discharge to home Discharge Date: 11/17/19 Discharge Time: 13:19 I agree with the RN Medical Screening Exam: Yes Risk & Benefit of care provided described in d/c instruction: Yes Diagnosis: RELATED CONDITIONS, UNSPECIFIED, THIRD TRIMESTER
== END 2019-11-17 13:21 | disposition home or self-care (01) ==
LOC: FBPOP 11:39
PROVIDERS: ATTEND Obstetrics & Gynecology
DX: O26.93 Pregnancy related conditions, unspecified, third trimester (principal); Z3A.38 38 weeks gestation of pregnancy
CPT/HCPCS: 59025; G0463; 99213

== ENCOUNTER 2019-11-21 06:08 | Inpatient (IN) | payer OTHER ==
[2019-11-21] MEDS ORDERED: LIDOCAINE 0.5% (PF) 5 MG/ML (50 ML SDV) SQ PRN (06:28)
[2019-11-21] MEDS ORDERED: METHYLERGONOVINE 0.2 MG/ML 1 ML AMP IM PRN (06:28)
[2019-11-21] MEDS ORDERED: OXYTOCIN 10 UNIT/ML 1 ML VIAL IM PRN (06:28)
[2019-11-21] MEDS ORDERED: CARBOPROST TROMETHAMINE 250 MCG/ML 1 ML AMP IM PRN (06:28)
[2019-11-21] MEDS ORDERED: TERBUTALINE 1 MG/ML VIAL SQ PRN (06:28)
[2019-11-21] MEDS ORDERED: OXYTOCIN 30 UNITS/500 ML NS 30 UNIT in SALINE 1 500ML.BAG IV SCH (06:30)
[2019-11-21] MEDS: LACTATED RINGERS 1,000 ML IV SCH ×3 (06:30→14:08)
[2019-11-21 06:38] LABS: Anisocytosis Slight; Basophils % (A) 0 %; Eosinophils # (A) 0.2 k/uL (0-0.7); Eosinophils % (A) 2 %; HCT 37.1 % (34.0-46.0); HGB 12.3 gm/dL (11.4-16.0); Lymphocytes # (A) 1.8 k/uL (1.0-4.8); Lymphocytes % (A) 18 %; MCHC 33.2 g/dL (31.0-37.0); MCV 87.5 fL (80.0-100.0); Mean Platelet Volume 8.6; Monocytes # (A) 0.5 k/uL (0-1.0); Monocytes % (A) 5 %; Neutrophils % (A) 73 %; Platelet Count 192 k/uL (150-450); RBC 4.25 m/uL (3.80-5.40); RDW 17.4 % (11.5-15.5); WBC 9.5 k/uL (3.8-10.6)
[2019-11-21] MEDS ORDERED: ROPIVACAINE 100 MG, fentaNYL (PF) 200 MCG in SODIUM CHLORIDE 0.9% 76 ML EPIDURAL ONE (14:14)
[2019-11-21] MEDS ORDERED: BENZOCAINE/MENTHOL SPRAY 1 GM/SPRAY AEROSOL TOPICAL PRN (18:23)
[2019-11-21] MEDS ORDERED: ACETAMINOPHEN TAB 325 MG TAB PO PRN (18:23)
[2019-11-21] MEDS ORDERED: HYDROCORTISONE 2.5% RECTAL CREAM 30 GM TUBE RECTAL PRN (18:23)
[2019-11-21] MEDS ORDERED: diphenhydrAMINE 50 MG/ML 1 ML VIAL IVP PRN ×2 (18:23)
[2019-11-21] MEDS ORDERED: SIMETHICONE 80 MG CHEWABLE PO PRN (18:23)
[2019-11-21] MEDS ORDERED: WITCH HAZEL 1 EACH MED..PAD TOPICAL PRN (18:23)
[2019-11-21] MEDS ORDERED: ZOLPIDEM 5 MG TAB PO PRN (18:23)
[2019-11-21] MEDS ORDERED: MEASLES-MUMPS-RUBELLA VACC/PF 12,500 UNIT/0.5 ML VIAL SQ ONE (18:23)
[2019-11-21] MEDS ORDERED: LANOLIN CREAM 5 GM TUBE TOPICAL PRN (18:23)
[2019-11-21] MEDS ORDERED: diphenhydrAMINE 25 MG CAP PO PRN (18:23)
[2019-11-21] MEDS ORDERED: diphenhydrAMINE 50 MG CAP PO PRN (18:23)
--- NOTE | 2019-11-21 18:26 | P.HPOB ---
History of Present Illness H&P Date: 11/21/19 Chief Complaint: Intrauterine at term: Induction of labor: Maternal tachycardia Alma Delia is a 24-year-old at 39 weeks gestation arise for induction of labor. Her course has been, complicated by multiple episodes of supraventricular tachycardia she was evaluated and seen by cardiology for same was placed on metoprolol. I did consult maternal- medicine about her and the incision between maternal- medicine myself was to continue the medica tion as she was symptomatically fine while on metoprolol but a time she stop she began having significant symptomatic tachycardia that made her short of breath and lightheaded. She is here for induction of labor today she is dilated to 1 cm 50% effaced and -3 station. Verification of vertex presentation is made by the outside ultrasound. Pertinent labs O+ blood type Rh and it was negative, rubella was nonimmune, hepatitis B surface antigen RPR and GBS were all negative. All the questions are answered for her. She is aware of risks and benefits of induction of labor. A category 1 tracing is noted. Past Medical History Past Medical History: No Reported History, Thyroid Disorder Additional Past Medical History / Comment(s): nodules on thyroid History of Any Multi-Drug Resistant Organisms: None Reported Past Surgical History: No Surgical Hx Reported Past Anesthesia/Blood Transfusion Reactions: No Reported Reaction Past Psychological History: Anxiety Smoking Status: Never smoker Past Alcohol Use History: None Reported Past Drug Use History: None Reported - Past Family History Mother Family Medical History: No Reported History Father Family Medical History: No Reported History Medications and Allergies Home Medications Medication Instructions Recorded Confirmed Type Metoprolol Tartrate [Lopressor] 1 tab PO AC-BID 11/21/19 11/21/19 History Pantoprazole [Protonix] 40 mg PO AC-BRKFST 11/21/19 11/21/19 History Allergies Allergy/AdvReac Type Severity Reaction Status Date / Time No Known Allergies Allergy Verified 11/21/19 07:27 Exam Osteopathic Statement: *. No significant issues noted on an osteopathic structural exam other than those noted in the History and Physical/Consult. Vital Signs Temp Pulse Resp BP 11/21/19 07:12 96 F L 101 H 16 108/66 Intake and Output 11/21/19 11/21/19 11/21/19 06:59 14:59 22:59 Other: Weight 92.533 kg 92.533 kg - OBG Physical Exam Breast: both: normal (no masses) Abdomen: bowel sounds normal, no diffuse tenderness, no bruit present, no guarding noted, no hepatomegaly, no splenomegaly, no mass Vulva: both: normal Vagina: normal moisture, no discharge Cervix: no lesion, no discharge Uterus: normal size, normal contour Adnexa: both: normal Anus/Rectum: normal perianal skin, no rectal mass, no hemorrhoids, heme negative Results Result Diagrams: 11/21/19 06:20 Abnormal Lab Results - Last 24 Hours (Table) 11/21/19 Range/Units 06:20 RDW 17.4 H (11.5-15.5) %
--- NOTE | 2019-11-21 18:27 | P.PROBDLV ---
Vaginal Delivery Note - . Vaginal Delivery Note: Alma Delia progressed to complete and pushing with spontaneous vaginal delivery of a viable female over an intact perineum. Once baby's head was delivered a nuchal cord 1 was noted and easily the baby was delivered through that from left occiput anterior position. Once baby was delivered mouth nares were bulb suctioned and baby was placed on mother's abdomen where the umbilical cord was allowed to pulsate for 30 seconds prior to clamping cutting. Once this was accomplished nursery personnel was present and assumed care. Placenta was then delivered intact Pitocin was added to the IV.. scores and weight are pending, but both mother and baby currently appear stable following delivery.
[2019-11-21] MEDS ORDERED: OXYTOCIN 20 UNITS/1000 ML NS 1,000 ML IV SCH (18:30)
[2019-11-21] MEDS: SENNOSIDES-DOCUSATE SODIUM 1 EACH TAB PO SCH (21:51)
[2019-11-22] MEDS: IBUPROFEN 600 MG TAB PO PRN ×2 (01:05→07:51)
[2019-11-22] MEDS ORDERED: METOPROLOL TARTRATE 25 MG TAB PO SCH ×2 (07:30→09:00)
[2019-11-22] MEDS ORDERED: PANTOPRAZOLE 40 MG TABLET PO SCH (07:30)
[2019-11-22] MEDS: SENNOSIDES-DOCUSATE SODIUM 1 EACH TAB PO SCH (07:51)
--- NOTE | 2019-11-22 08:26 | P.DS ---
Providers Date of admission: 11/21/19 06:08 Expected date of discharge: 11/22/19 Attending physician: Андрей Holland Primary care physician: Stated None Hospital Course: Made is doing very well this morning. She is ambulating, voiding and tolerating her diet. She voices no complaints and is requesting discharge home tonight. Prescription for Motrin was 40 to the pharmacy. All questions were answered for her and discharge instructions thoroughly reviewed. On physical exam vital signs are currently stable and afebrile. Heart regular, lungs clear, extremities without pain. Abdomen soft nontender. Positive bowel sounds are noted. Abdomen soft, positive bowel sounds are noted. Lochia is reported to be light as well. She will plan to contact cardiology in the next week to reassess her metoprolol use but otherwise we'll continue to use it at least in a.m. when she is most symptomatic. She is otherwise stable for discharge. Prescription for Motrin was 40 to her pharmacy. Patient Condition at Discharge: Good Plan - Discharge Summary New Discharge Prescriptions: New Ibuprofen [Motrin] 600 mg PO Q6HR PRN #30 tab PRN Reason: Pain No Action Metoprolol Tartrate [Lopressor] 1 tab PO AC-BID Pantoprazole [Protonix] 40 mg PO AC-BRKFST Discharge Medication List Metoprolol Tartrate [Lopressor] 1 tab PO AC-BID 11/21/19 [History] Pantoprazole [Protonix] 40 mg PO AC-BRKFST 11/21/19 [History] Ibuprofen [Motrin] 600 mg PO Q6HR PRN #30 tab 11/22/19 [Rx] Follow up Appointment(s)/Referral(s): Андрей Holland DO [Doctor of Osteopathic Medicine] - 6 Weeks Activity/Diet/Wound Care/Special Instructions: No heavy lifting, limit stairs and driving, and pelvic rest. If any high temperatures, heavy bleeding, or severe pain call my office Discharge Disposition: HOME SELF-CARE
[2019-11-22 10:04] VITALS: RESP 18
[2019-11-22 16:53] VITALS: BP 95/62; PULSE 68; TEMP 98.1
== END 2019-11-22 19:10 | disposition home or self-care (01) | DRG 805 ==
LOC: 4FBP 06:08
PROVIDERS: ADMIT Obstetrics & Gynecology; ATTEND Obstetrics & Gynecology
PROC: 3E0R3BZ Introduction of Anesthetic Agent into Spinal Canal, Percutaneous Approach (ICD-10-PCS; principal; 2019-11-21)
PROC: 3E033VJ Introduction of Other Hormone into Peripheral Vein, Percutaneous Approach (ICD-10-PCS; principal; 2019-11-21)
PROC: 00HU33Z Insertion of Infusion Device into Spinal Canal, Percutaneous Approach (ICD-10-PCS; principal; 2019-11-21)
PROC: 10E0XZZ Delivery of Products of Conception, External Approach (ICD-10-PCS; principal; 2019-11-21)
PROC: 3E00X4Z Introduction of Serum, Toxoid and Vaccine into Skin and Mucous Membranes, External Approach (ICD-10-PCS; principal; 2019-11-21)
PROC: 10907ZC Drainage of Amniotic Fluid, Therapeutic from Products of Conception, Via Natural or Artificial Opening (ICD-10-PCS; principal; 2019-11-21)
DX: O69.81X0 Labor and delivery complicated by cord around neck, without compression, not applicable or unspecified (principal); O99.42 Diseases of the circulatory system complicating childbirth; Z37.0 Single live birth; I47.1 Supraventricular tachycardia; O99.284 Endocrine, nutritional and metabolic diseases complicating childbirth; E04.2 Nontoxic multinodular goiter; Z23 Encounter for immunization; Z3A.39 39 weeks gestation of pregnancy; Z79.899 Other long term (current) drug therapy; Z86.59 Personal history of other mental and behavioral disorders
CPT/HCPCS: 85025; 86850; 86900; 86901

== ENCOUNTER 2020-06-29 05:49 | Emergency (ER) | payer OTHER ==
[2020-06-29] MEDS ORDERED: ALPRAZolam 0.5 MG TAB PO STA (06:17)
[2020-06-29 06:30] LABS: Glucose,Whole Blood 120 mg/dL (75-99)
--- NOTE | 2020-06-29 06:48 | ED ---
Weakness HPI - General Chief complaint: Weakness Stated complaint: Near syncope Time Seen by Provider: 06/29/20 06:05 Source: patient Mode of arrival: ambulatory Limitations: no limitations - History of Present Illness Initial comments: 25-year-old feel presents today for chief complaint of sensation she is going to pass out. Patient states she woke up this morning she states she felt warm and anxious. She states that she thought she might pass out. Patient states that she has not had any history of syncope. She denies having darkening of vision loss of hearing she denies a chest pain shortness of breath palpitations. Patient denies fevers she states she has had some recent congestion denies any abdominal pain,diarrhea vomiting. Patient states that she believes this is all anxiety she has had this before-denies suicidal ideations. Patient appears well nontoxic on arrival patient VS within acceptable limits. - Related Data Home Medications Medication Instructions Recorded Confirmed No Known Home Medications 06/29/20 06/29/20 Allergies Allergy/AdvReac Type Severity Reaction Status Date / Time No Known Allergies Allergy Verified 06/29/20 07:13 Review of Systems ROS Statement: Those systems with pertinent positive or pertinent negative responses have been documented in the HPI. ROS Other: All systems not noted in ROS Statement are negative. Past Medical History Past Medical History: No Reported History, Thyroid Disorder Additional Past Medical History / Comment(s): nodules on thyroid History of Any Multi-Drug Resistant Organisms: None Reported Past Surgical History: No Surgical Hx Reported Past Anesthesia/Blood Transfusion Reactions: No Reported Reaction Past Psychological History: Anxiety Smoking Status: Never smoker Past Alcohol Use History: None Reported Past Drug Use History: None Reported - Past Family History Mother Family Medical History: No Reported History Father Family Medical History: No Reported History General Exam - General Exam Comments Initial Comments: General: The patient is awake and alert, in no distress Eye: +3 mm pupils are equal, round and reactive to light, extra-ocular movements are intact. No nystagmus. There is normal conjunctiva bilaterally. No signs of icterus. Ears, nose, mouth and throat: There are moist mucous membranes and no oral lesions. Neck: The neck is supple, there is no tenderness or JVD. Cardiovascular: There is a regular rate and rhythm. No murmur, rub or gallop is appreciated. Respiratory: Lungs are clear to auscultation, respirations are non-labored, breath sounds are equal. No wheezes, stridor, rales, or rhonchi. Gastrointestinal: Soft, non-distended, non-tender abdomen without masses or organomegaly noted. There is no rebound or guarding present. Musculoskeletal: Normal ROM, no tenderness. Strength 5/5. Sensation intact. Radial pulses equal bilaterally 2+. Neurological: A&O x 3. CN II-XII intact grossly, There are no obvious motor or sensory deficits. Coordination appears grossly intact. Speech is normal. Skin: Skin is warm and dry and no rashes or lesions are noted. No LE edema. Psychiatric: Cooperative, appropriate mood & affect, normal judgment. 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 elevation or depression is appreciated. Medical Decision Making - Medical Decision Making 25yo female who denies any PMH aside from anxiety presenting for feeling weak like she is going to pass out. Denies syncopal episode, CP/SOB. patient appears well nontoxic. EKG no acute findings. No murmur on exam. CXR some peribronchial cuffing otherwise normal. Patient states she feels better after xanax "i feel it was my anxiety" Discussed importance of PCP f/u and return for additional episodes. pt verbalized understanding and was discharged appearing well. Discussed case wtih Dr. tang who is agreeable to care plan and discharge. - Lab Data Lab Results 06/29/20 06/29/20 Range/Units 06:29 06:50 POC Glucose (mg/dL) 120 H (75-99) mg/dL POC Glu Narcotics Investigator ID Ida Parker Urine HCG, Qual Not Detected (Not Detectd) Disposition Clinical Impression: Pre-syncope Disposition: HOME SELF-CARE Condition: Good Instructions (If sedation given, give patient instructions): Near Syncope (ED), Anxiety (ED) Additional Instructions: Please use medication as discussed. Please follow-up with family doctor in the next 2 days. Please return to emergency room if the symptoms increase or worsen or for any other concerns. Is patient prescribed a controlled substance at d/c from ED?: No Referrals: Amaury Lilly MD [Primary Care Provider] - 1-2 days Time of Disposition: 08:02
--- NOTE | 2020-06-29 07:42 | XR ---
EXAMINATION TYPE: XR chest 2V DATE OF EXAM: 06/29/2020 COMPARISON: 08/22/2019 HISTORY: 25-year-old female presyncopal episode TECHNIQUE: PA and lateral views FINDINGS: The cardiomediastinal silhouette, aorta, and pulmonary vasculature are within normal limits. Mild mimi tral peribronchial cuffing. Otherwise, lungs and pleural spaces are clear. IMPRESSION: Mild central peribronchial cuffing could reflect bronchitis or asthma. Otherwise, no acute cardiopulm onary process.
[2020-06-29 08:50] VITALS: BP 92/65; PULSE 75; RESP 18; TEMP 98.5
== END 2020-06-29 08:49 | disposition home or self-care (01) ==
LOC: EC 05:49
DX: R55 Syncope and collapse (principal); F41.9 Anxiety disorder, unspecified; R53.1 Weakness
CPT/HCPCS: 36415; 71046; 81025; 93005; 99285

== ENCOUNTER 2021-02-07 09:18 | Emergency (ER) | payer OTHER ==
[2021-02-07 09:23] VITALS: BP 111/71; PULSE 119; RESP 18; TEMP 98.1
[2021-02-07] MEDS ORDERED: ACET/COD 300 MG/30 MG STARTER PACK 6 TAB BTL PO STA (09:44)
--- NOTE | 2021-02-07 09:45 | ED ---
ENT HPI - General Chief complaint: Dental/Oral Stated complaint: Swollen neck Time Seen by Provider: 02/07/21 09:34 Source: patient, RN notes reviewed Mode of arrival: ambulatory Limitations: no limitations - History of Present Illness Initial comments: 25-year-old female presents emergency Department chief complaint abdominal pain. Patient states her last couple days she noticed some pain in the left lower and has noticed some swelling now. No difficulty swallowing or difficulty breathing no fevers chills no night sweats. She states she has a known bad tooth in the left lower. She has not contacted a dentist. Patient states she took some old antibiotics are started yesterday. She states her pain is mild with ibuprofen currently. - Related Data Previous Rx's Medication Instructions Recorded Ibuprofen [Motrin] 600 mg PO Q8HR PRN #20 tab 02/07/21 Penicillin V Potassium [Pen Vee K] 500 mg PO QID #40 tablet 02/07/21 Allergies Allergy/AdvReac Type Severity Reaction Status Date / Time No Known Allergies Allergy Verified 02/07/21 09:20 Review of Systems ROS Statement: Those systems with pertinent positive or pertinent negative responses have been documented in the HPI. ROS Other: All systems not noted in ROS Statement are negative. Past Medical History Past Medical History: Thyroid Disorder Additional Past Medical History / Comment(s): nodules on thyroid History of Any Multi-Drug Resistant Organisms: None Reported Past Surgical History: No Surgical Hx Reported Past Anesthesia/Blood Transfusion Reactions: No Reported Reaction Past Psychological History: Anxiety Smoking Status: Never smoker Past Alcohol Use History: None Reported Past Drug Use History: None Reported - Past Family History Mother Family Medical History: No Reported History Father Family Medical History: No Reported History General Exam Limitations: no limitations General appearance: alert, in no apparent distress, anxious Head exam: Present: atraumatic, normocephalic, normal inspection Eye exam: Present: normal appearance, PERRL, EOMI. Absent: scleral icterus, conjunctival injection, periorbital swelling ENT exam: Present: mucous membranes moist. Absent: normal oropharynx (Left lower jawline swelling noted, there is dental caries left lower no drainable abscess.) Neck exam: Present: normal inspection, full ROM. Absent: tenderness, meningismus, lymphadenopathy Respiratory exam: Present: normal lung sounds bilaterally. Absent: respiratory distress, wheezes, rales, rhonchi, stridor Cardiovascular Exam: Present: regular rate, normal rhythm, normal heart sounds. Absent: systolic murmur, diastolic murmur, rubs, gallop, clicks Course Vital Signs 02/07/21 09:20 Temperature 98.1 F Pulse Rate 119 H Respiratory 18 Rate Blood Pressure 111/71 O2 Sat by Pulse 99 Oximetry Medical Decision Making - Medical Decision Making Patient has evidence of dental infection no drainable abscess. Patient will be given antibiotics, ibuprofen follow-up with dentist. Disposition Clinical Impression: Dental caries, Toothache Disposition: HOME SELF-CARE Condition: Stable Instructions (If sedation given, give patient instructions): Dental Abscess (ED), Toothache (ED) Additional Instructions: Please return to the Emergency Department if symptoms worsen or any other concerns. Prescriptions: Ibuprofen [Motrin] 600 mg PO Q8HR PRN #20 tab PRN Reason: Pain Penicillin V Potassium [Pen Vee K] 500 mg PO QID #40 tablet Is patient prescribed a controlled substance at d/c from ED?: No Referrals: Amaury Lilly MD [Primary Care Provider] - 1-2 days Time of Disposition: 09:45
== END 2021-02-07 09:50 | disposition home or self-care (01) ==
LOC: EC 09:18
DX: K02.9 Dental caries, unspecified (principal); R10.9 Unspecified abdominal pain; F41.9 Anxiety disorder, unspecified
CPT/HCPCS: 99283

== ENCOUNTER 2023-12-15 06:48 | Emergency (ER) | payer OTHER ==
--- NOTE | 2023-12-15 07:05 | ED ---
General Adult HPI - General Chief complaint: Recheck/Abnormal Lab/Rx Stated complaint: Air bubble sensation in chest Time Seen by Provider: 12/15/23 06:57 Source: patient, RN notes reviewed Mode of arrival: ambulatory Limitations: no limitations - History of Present Illness Initial comments: 28-year-old female presents emergency department chief complaint of epigastric discomfort. Patient states she feels like she has to burp but when she does she get some relief but returns. She has no history of reflux denies any fevers or chills no chest pain no shortness of breath no headache dizziness. Patient tried 1 times but states that she is unsure if it made it feel better or not. Patient has not tried any other medications no dysuria denies any chance of . - Related Data Previous Rx's Medication Instructions Recorded Ibuprofen [Motrin] 600 mg PO Q8HR PRN #20 tab 02/07/21 Penicillin V Potassium [Pen Vee K] 500 mg PO QID #40 tablet 02/07/21 Famotidine [Pepcid] 20 mg PO BID #28 tablet 12/15/23 Allergies Allergy/AdvReac Type Severity Reaction Status Date / Time No Known Allergies Allergy Verified 12/15/23 06:53 Review of Systems ROS Statement: Those systems with pertinent positive or pertinent negative responses have been documented in the HPI. ROS Other: All systems not noted in ROS Statement are negative. Past Medical History Past Medical History: Thyroid Disorder Additional Past Medical History / Comment(s): nodules on thyroid History of Any Multi-Drug Resistant Organisms: None Reported Past Surgical History: No Surgical Hx Reported Past Anesthesia/Blood Transfusion Reactions: No Reported Reaction Past Psychological History: Anxiety Smoking Status: Never smoker Past Alcohol Use History: None Reported Past Drug Use History: None Reported - Past Family History Mother Family Medical History: No Reported History Father Family Medical History: No Reported History General Exam Limitations: no limitations General appearance: alert, in no apparent distress Head exam: Present: atraumatic, normocephalic, normal inspection Eye exam: Present: normal appearance, PERRL, EOMI. Absent: scleral icterus, conjunctival injection, periorbital swelling ENT exam: Present: normal exam, mucous membranes moist Neck exam: Present: normal inspection, full ROM. Absent: tenderness, men ingismus, lymphadenopathy Respiratory exam: Present: normal lung sounds bilaterally. Absent: respiratory distress, wheezes, rales, rhonchi, stridor Cardiovascular Exam: Present: regular rate, normal rhythm, normal heart sounds. Absent: systolic murmur, diastolic murmur, rubs, gallop, clicks GI/Abdominal exam: Present: soft, tenderness, normal bowel sounds. Absent: distended, guarding, rebound, rigid Back exam: Absent: CVA tenderness (R), CVA tenderness (L) Neurological exam: Present: alert Course Vital Signs 12/15/23 12/15/23 06:53 09:00 Temperature 97.9 F 98.1 F Pulse Rate 95 72 Respiratory 16 18 Rate Blood Pressure 122/82 113/78 O2 Sat by Pulse 100 100 Oximetry Medical Decision Making - Medical Decision Making Was pt. sent in by a medical professional or institution ([facility], [facility] [employer], urgent care, hospital, or retirement...) When possible be specific @ -No Did you speak to anyone other than the patient for history (EMS, parent, family, police, friend...)? What history was obtained from this source @ -No Did you review nursing and triage notes (agree or disagree)? Why? @ -I reviewed and agree with nursing and triage notes Were old charts reviewed (outside hosp., previous admission, EMS record, old EKG, old radiological studies, urgent care reports/EKG's, retirement records)? Report findings @ -No old charts were reviewed Differential Diagnosis (chest pain, altered mental status, abdominal pain women, abdominal pain men, vaginal bleeding, weakness, fever, dyspnea, syncope, headache, dizziness, GI bleed, back pain, seizure, CVA, palpatations, mental health, musculoskeletal)? @ -Differential Abdominal Pain Women: Appendicitis, Cholecystitis, diverticulosis, ischemic bowel, pancreatitis, hepatitis, UTI, gastroenteritis, AAA, incarcerated hernia, bowel obstruction, constipation, inflammatory bowel, hepatitis, peptic ulcer disease, splenic infarction, perforated viscus, vulvitis, ovarian torsion, PID, kidney stone, placenta abruption, this is not meant to be an all-inclusive list EKG interpreted by me (3pts min.). @ -None X-rays interpreted by me (1pt min.). @ -None done CT interpreted by me (1pt min.). @ -None done U/S interpreted by me (1pt. min.). @ -None done What testing was considered but not performed or refused? (CT, X-rays, U/S, labs)? Why? @ -None What meds were considered but not given or refused? Why? @ -None Did you discuss the management of the patient with other professionals (professionals i.e. , PA, CAR FERRY MASTER, lab, RT, psych nurse, aids social worker, podiatry doctor, teacher, chief fundraising officer, director case management)? Give summary @ -No Was smoking cessation discussed for >3mins.? @ -No Was critical care preformed (if so, how long)? @ -No Were there social determinants of health that impacted care today? How? (Home lessness, low income, unemployed, alcoholism, drug addiction, transportation, low edu. Level, literacy, decrease access to med. care, fdc, rehab)? @ -No Was there de-escalation of care discussed even if they declined (Discuss DNR or withdrawal of care, Hospice)? DNR status @ -No What co-morbidities impacted this encounter? (DM, HTN, Smoking, COPD, CAD, Cancer, CVA, ARF, Chemo, Hep., AIDS, mental health diagnosis, sleep apnea, morbid obesity)? @ -None Was patient admitted / discharged? Hospital course, mention meds given and route, prescriptions, significant lab abnormalities, going to OR and other pertinent info. @ -Discharge patient had great improvement after GI cocktail. Laboratory stud ies essentially unremarkable. Patient discharged with Pepcid and return brands were discussed. Undiagnosed new problem with uncertain prognosis? @ -No Drug Therapy requiring intensive monitoring for toxicity (Heparin, Nitro, Insulin, Cardizem)? @ -No Were any procedures done? @ -No Diagnosis/symptom? @ -GERD Acute, or Chronic, or Acute on Chronic? @ -Acute Uncomplicated (without systemic symptoms) or Complicated (systemic symptoms)? @ -uncomplicated Side effects of treatment? @ -No Exacerbation, Progression, or Severe Exacerbation? @ -No Poses a threat to life or bodily function? How? (Chest pain, [place], [place], pneumonia, PE, COPD, DKA, ARF, appy, cholecystitis, CVA, Diverticulitis, Homicidal, S uicidal, threat to staff... and all critical care pts) @ -No - Lab Data Result diagrams: 12/15/23 08:15 12/15/23 07:13 Lab Results 04/30/24 04/30/24 Range/Units 07:13 08:15 WBC 6.1 (3.8-10.6) k/uL RBC 5.00 (3.80-5.40) m/uL Hgb 15.0 (11.4-16.0) gm/dL Hct 44.4 (34.0-46.0) % MCV 88.7 (80.0-100.0) fL MCH 29.9 (25.0-35.0) pg MCHC 33.7 (31.0-37.0) g/dL RDW 13.2 (11.5-15.5) % Plt Count 197 (150-450) k/uL MPV 9.4 Neutrophils % 72 % Lymphocytes % 19 % Monocytes % 5 % Eosinophils % 2 % Basophils % 1 % Neutrophils # 4.4 (1.3-7.7) k/uL Lymphocytes # 1.2 (1.0-4.8) k/uL Monocytes # 0.3 (0-1.0) k/uL Eosinophils # 0.1 (0-0.7) k/uL Basophils # 0.0 (0-0.2) k/uL Sodium 139 (137-145) mmol/L Potassium 4.9 (3.5-5.1) mmol/L Chloride 108 H (98-107) mmol/L Carbon Dioxide 25 (22-30) mmol/L Anion Gap 6 mmol/L BUN 8 (7-17) mg/dL Creatinine 0.72 (0.52-1.04) mg/dL Est GFR (CKD-EPI)AfAm >90 (>60 ml/min/1.73 sqM) Est GFR (CKD-EPI)NonAf >90 (>60 ml/min/1.73 sqM) Glucose 114 H (74-99) mg/dL Calcium 9.4 (8.4-10.2) mg/dL Total Bilirubin 1.1 (0.2-1.3) mg/dL AST 58 H (14-36) U/L ALT 44 H (4-34) U/L Alkaline Phosphatase 75 (38-126) U/L Total Protein 8.1 (6.3-8.2) g/dL Albumin 4.5 (3.5-5.0) g/dL Lipase 135 (23-300) U/L Disposition Clinical Impression: GERD (gastroesophageal reflux disease) Disposition: HOME SELF-CARE Condition: Stable Instructions (If sedation given, give patient instructions): GERD (Gastroesophageal Reflux Disease) (ED) Additional Instructions: Please return to the Emergency Department if symptoms worsen or any other concerns. Prescriptions: Famotidine [Pepcid] 20 mg PO BID #28 tablet Is patient prescribed a controlled substance at d/c from ED?: No Referrals: Amaury Lilly MD [Primary Care Provider] - 1-2 days Time of Disposition: 08:36
[2023-12-15 07:47] LABS: ALT 44 U/L (4-34); AST 58 U/L (14-36); African American GFR (CKD) >90 (>60 ml/min/1.73 sqM); Albumin 4.5 g/dL (3.5-5.0); Alkaline Phosphatase 75 U/L (38-126); Anion Gap 6 mmol/L; Blood Urea Nitrogen 8 mg/dL (7-17); Calcium 9.4 mg/dL (8.4-10.2); Carbon Dioxide 25 mmol/L (22-30); Chloride 108 mmol/L (98-107); Glucose 114 mg/dL (74-99); Lipase 135 U/L (23-300); Non-African American GFR(CKD) >90 (>60 ml/min/1.73 sqM); Sodium 139 mmol/L (137-145); Total Bilirubin 1.1 mg/dL (0.2-1.3); Total Protein 8.1 g/dL (6.3-8.2)
[2023-12-15 08:05] LABS: Potassium 4.9 mmol/L (3.5-5.1)
[2023-12-15] MEDS: MAG HYDROX/AL HYDROX/SIMETH 30 ML, HYOSCYAMINE ELIXIR 10 ML, LIDOCAINE VISCOUS 2% 10 ML PO STA (08:16)
[2023-12-15] MEDS: MAG HYDROX/AL HYDROX/SIMETH 30 ML, HYOSCYAMINE ELIXIR 10 ML, LIDOCAINE VISCOUS 10 ML PO STA (08:17)
[2023-12-15 08:24] LABS: Basophils % (A) 1 %; Eosinophils # (A) 0.1 k/uL (0-0.7); Eosinophils % (A) 2 %; HCT 44.4 % (34.0-46.0); Lymphocytes # (A) 1.2 k/uL (1.0-4.8); Lymphocytes % (A) 19 %; MCH 29.9 pg (25.0-35.0); MCHC 33.7 g/dL (31.0-37.0); MCV 88.7 fL (80.0-100.0); Mean Platelet Volume 9.4; Monocytes # (A) 0.3 k/uL (0-1.0); Monocytes % (A) 5 %; Neutrophils # (A) 4.4 k/uL (1.3-7.7); Neutrophils % (A) 72 %; Platelet Count 197 k/uL (150-450); RDW 13.2 % (11.5-15.5); WBC 6.1 k/uL (3.8-10.6)
[2023-12-15] MEDS: FAMOTIDINE 20 MG/2 ML VIAL IV STA (08:51)
[2023-12-15 09:34] VITALS: BP 113/78; PULSE 72; RESP 18; TEMP 98.1
== END 2023-12-15 09:01 | disposition home or self-care (01) ==
LOC: EC 06:48
DX: K21.9 Gastro-esophageal reflux disease without esophagitis (principal)
CPT/HCPCS: 36415; 80053; 83690; 85025; 99283; 96374; J3490

== ENCOUNTER → 2024-06-02 | Outpatient (CLI) | payer OTHER ==
[2024-06-02 15:28] LABS: Basophils # (A) 0.05 X 10*3/uL (0.00-0.10); Basophils % (A) 0.7 %; Eosinophils % (A) 4.1 %; HCT 45.3 % (37.2-46.3); HGB 15.3 g/dL (12.0-15.0); Lymphocytes # (A) 2.09 X 10*3/uL (0.90-5.00); Lymphocytes % (A) 28.6 %; MCH 29.8 pg (27.0-32.0); MCHC 33.8 g/dL (32.0-37.0); MCV 88.1 FL (80.0-97.0); Mean Platelet Volume 11.8 FL (9.5-12.2); Monocytes # (A) 0.54 X 10*3/uL (0.20-1.00); Monocytes % (A) 7.4 %; NRBC Per 100 WBC 0 X 10*3/uL (0.00-0.01); Neutrophils # (A) 4.33 X 10*3/uL (1.80-7.70); Neutrophils % (A) 59.1 %; Platelet Count 187 X 10*3/uL (140-440); RBC 5.14 X 10*6/uL (4.10-5.20); RDW 12.8 % (11.5-14.5); WBC 7.32 X 10*3/uL (4.50-10.00)
[2024-06-02 15:41] LABS: ALT 23 U/L (8-44); AST 21 U/L (13-35); Albumin 4.4 g/dL (3.8-4.9); Albumin/Globulin Ratio 1.47 Ratio (1.60-3.17); Alkaline Phosphatase 84 U/L (41-126); BUN/Creat Ratio 13.75 Ratio (12.00-20.00); Calcium 9.4 mg/dL (8.7-10.3); Carbon Dioxide 24.1 mmol/L (21.6-31.8); Chloride 105 mmol/L (96-109); Chol/HDL Ratio 3.71 Ratio; Glucose 98 mg/dL (70-110); LDL Cholesterol,Calculated 109.2 mg/dL (0.0-131.0); Potassium 4.4 mmol/L (3.5-5.5); Sodium 139 mmol/L (135-145); Total Bilirubin 0.7 mg/dL (0.3-1.2); Total Protein 7.4 g/dL (6.2-8.2)
== END | disposition home or self-care (01) ==
LOC: LABWHC1 10:00
PROVIDERS: ATTEND Nurse Practitioner Family
CPT/HCPCS: 36415; 80053; 80061; 83036; 84443; 85025

== ENCOUNTER 2024-06-05 20:29 | Emergency (ER) | payer OTHER ==
[2024-06-05 20:35] VITALS: RESP 18
--- NOTE | 2024-06-05 21:17 | ED ---
Headache HPI - General Source: patient Mode of arrival: ambulatory Limitations: no limitations - History of Present Illness MD Complaint: headache, other (Dizziness) Onset/Timin -: days(s) Onset Description: gradual Quality: other (Pressure) Consistency: intermittent Associated Symptoms: nausea, other (Dizziness) Treatments Prior to Arrival: other (Xanax) <Be Brantley - Last Filed: 06/05/24 21:12> <Yfn Khan - Last Filed: 06/06/24 00:46> - General Chief Complaint: Headache Stated Complaint: Dizzy Time Seen by Provider: 06/05/24 20:41 - History of Present Illness Initial Comments: Quick note: This is a 28-year-old female complaining of headache (3 out of 10) and dizziness x 2 days. Patient endorses recent increase stress and fatigue. Endorses more concern for dizziness and headache. Also endorses nausea but denies history of migraines. Patient endorses use of very small dose of Xanax with no relief. Denies fever, chills, body aches, chest pain, dyspnea, ataxia, cognitive changes, abdominal pain, vomiting, and diarrhea. (Be Brantley) Patient presents to the ED complaining of having an intermittent, mild, generalized headache and dizziness for the past 2 days or so. Patient states that she has been under "a lot of stress" recently, and she states "I have not been sleeping much". Patient denies sudden onset of headache, LOC, neck pain or stiffness, fever or chills, focal numbness/weakness/neuro deficit, visual changes, speech difficulty, chest pain or pressure, dyspnea, cough or cold symptoms, palpitations, syncope, abdominal pain, nausea/vomiting/diarrhea, bloody or melanotic stool, dysuria or urinary symptoms, or any other symptoms or complaints. Patient states that she thinks that anxiety may be contributing to her symptoms. (Yfn Khan) - Related Data Previous Rx's Medication Instructions Recorded Ibuprofen [Motrin] 600 mg PO Q8HR PRN #20 tab 02/07/21 Penicillin V Potassium [Pen Vee K] 500 mg PO QID #40 tablet 02/07/21 Famotidine [Pepcid] 20 mg PO BID #28 tablet 12/15/23 Allergies Allergy/AdvReac Type Severity Reaction Status Date / Time No Known Allergies Allergy Verified 06/05/24 20:35 Review of Systems ROS Other: All systems not noted in ROS Statement are negative. <Be Brantley - Last Filed: 06/05/24 21:12> ROS Other: All systems not noted in ROS Statement are negative. <EnedinamichelleYfn - Last Filed: 06/06/24 00:46> ROS Statement: Those systems with pertinent positive or pertinent negative responses have been documented in the HPI. Past Medical History Past Medical History: Thyroid Disorder Additional Past Medical History / Comment(s): nodules on thyroid History of Any Multi-Drug Resistant Organisms: None Reported Past Surgical History: No Surgical Hx Reported Past Anesthesia/Blood Transfusion Reactions: No Reported Reaction Past Psychological History: Anxiety Smoking Status: Never smoker Past Alcohol Use History: None Reported Past Drug Use History: None Reported - Past Family History Mother Family Medical History: No Reported History Father Family Medical History: No Reported History <Be Brantley - Last Filed: 06/05/24 21:12> General Exam Limitations: no limitations <Be Brantley - Last Filed: 06/05/24 21:12> Limitations: no limitations General appearance: alert, in no apparent distress Head exam: Present: atraumatic, normocephalic Eye exam: Present: normal appearance, PERRL, EOMI ENT exam: Present: mucous membranes moist, TM's normal bilaterally Neck exam: Present: other (Trachea is in midline). Absent: tenderness, meningismus Respiratory exam: Present: normal lung sounds bilaterally. Absent: respiratory distress, wheezes, rales, rhonchi, stridor Cardiovascular Exam: Present: regular rate, normal rhythm, normal heart sounds, other (Normal radial pulses bilaterally) GI/Abdominal exam: Present: soft. Absent: distended, tenderness, guarding Extremities exam: Absent: pedal edema Neurological exam: Present: alert, oriented X3, CN II-XII intact. Absent: motor sensory deficit Skin exam: Present: warm, dry, normal color <LoganEarl joseul - Last Filed: 06/06/24 00:46> - General Exam Comments Initial Comments: Visual Physical Exam Vital signs reviewed General: Well-appearing, nontoxic, no acute distress. Head: Normocephalic, atraumatic Eyes: PERRLA, EOMI ENT: Airway patent Chest: Nonlabored breathing Skin: No visual rash, normal skin tone Neuro: Alert and oriented 3 Musculoskeletal: No gross abnormalities (Be Brantley) Course Vital Signs 06/05/24 20:33 Temperature 99 F Pulse Rate 117 H Respiratory 18 Rate Blood Pressure 131/85 O2 Sat by Pulse 100 Oximetry Medical Decision Making <Be Brantley - Last Filed: 06/05/24 21:12> - Lab Data Result diagrams: 06/05/24 23:24 06/05/24 23:24 - EKG Data -: EKG Interpreted by Me <EnedinakamranbradleyYfn - Last Filed: 06/06/24 00:46> - Medical Decision Making I completed the quick note portion of this chart signed RUDOLPH Barlow (Be Brantley) Was pt. sent in by a medical professional or institution ([facility], ENVIRONMENTAL REMEDIATION CONSULTANT, urgent care, hospital, or residential...) When possible be specific @ -No Did you speak to anyone other than the patient for history (EMS, parent, family, police, friend...)? What history was obtained from this source @ -No Did you review nursing and triage notes (agree or disagree)? Why? @ -I reviewed and agree with nursing and triage notes Were old charts reviewed (outside hosp., previous admission, EMS record, old EKG, old radiological studies, urgent care reports/EKG's, residential records)? Report findings @ -No old charts were reviewed Differential Diagnosis (chest pain, altered mental status, abdominal pain women, abdominal pain men, vaginal bleeding, weakness, fever, dyspnea, syncope, headache, dizziness, GI bleed, back pain, seizure, CVA, palpatations, mental health, musculoskeletal)? @ -Differential Dizziness: Benign paroxysmal positional Vertigo, Meniere's disease, hypovolemic, arrhythmia, hypoglycemia, hyperglycemia, anemia, headache, tension headache, migraine headache, cluster headache, intracranial hemorrhage, intracranial mass, , this is not meant to be an all-inclusive list This is not meant to be an all-inclusive list. EKG interpreted by me (3pts min.). @ -As above X-rays interpreted by me (1pt min.). @ -None done CT interpreted by me (1pt min.). @ -None done U/S interpreted by me (1pt. min.). @ -None done What testing was considered but not performed or refused? (CT, X-rays, U/S, labs)? Why? @ -None What meds were considered but not given or refused? Why? @ -None Did you discuss the management of the patient with other professionals (professionals i.e. , PA, ENVIRONMENTAL REMEDIATION CONSULTANT, lab, RT, psych nurse, social staff worker, crank hand, teacher, associate loan officer, block and case maker)? Give summary @ -No Was smoking cessation discussed for >3mins.? @ -No Was critical care preformed (if so, how long)? @ -No Were there social determinants of health that impacted care today? How? (Homelessness, low income, unemployed, alcoholism, drug addiction, transportation, low edu. Level, literacy, decrease access to med. care, [facility], re hab)? @ -No Was there de-escalation of care discussed even if they declined (Discuss DNR or withdrawal of care, Hospice)? DNR status @ -No What co-morbidities impacted this encounter? (DM, HTN, Smoking, COPD, CAD, Cancer, CVA, ARF, Chemo, Hep., AIDS, mental health diagnosis, sleep apnea, morbid obesity)? @ -None Was patient admitted / discharged? Hospital course, mention meds given and route, prescriptions, significant lab abnormalities, going to OR and other pertinent info. @ -Patient reports improvement in her headache with ED treatment, and she denies development of any new symptoms while in the ED. Patient has a normal/nonfocal neurological exam. Patient does not have any headache red flags (no neurological deficit, no sudden onset, no LOC, no neck pain or stiffness, no fever or chills, no trauma or injury)-> I do not think that head CT imaging is indicated at this time. Patient's EKG and labs are fairly unremarkable. I do not suspect an emergent medical condition at this time. Patient is aware of her test results, and she feels comfortable being discharged home at this time. Patient was counseled about headaches and dizziness, and she was clearly explained return and follow-up instructions. She was instructed to follow-up closely with her primary care provider. She feels comfortable with this plan. Undiagnosed new problem with uncertain prognosis? @ -No Drug Therapy requiring intensive monitoring for toxicity (Heparin, Nitro, Insulin, Cardizem)? @ -No Were any procedures done? @ -No Diagnosis/symptom? @ -Headache and dizziness Acute, or Chronic, or Acute on Chronic? @ -Acute Uncomplicated (without systemic symptoms) or Complicated (systemic symptoms)? @ -Default Side effects of treatment? @ -No Exacerbation, Progression, or Severe Exacerbation? @ -No Poses a threat to life or bodily function? How? (Chest pain, [place], [place], pneumonia, PE, COPD, DKA, ARF, appy, cholecystitis, CVA, Diverticulitis, Homicidal, Suicidal, threat to staff... and all critical care pts) @ -No (ErinYfn) - Lab Data Lab Results 06/05/24 06/05/24 Range/Units 23:24 23:24 WBC 7.0 (3.8-10.6) k/uL RBC 4.47 (3.80-5.40) m/uL Hgb 13.6 (11.4-16.0) gm/dL Hct 40.2 (34.0-46.0) % MCV 90.0 (80.0-100.0) fL MCH 30.4 (25.0-35.0) pg MCHC 33.8 (31.0-37.0) g/dL RDW 12.6 (11.5-15.5) % Plt Count 166 (150-450) k/uL MPV 8.6 Neutrophils % 63 % Lymphocytes % 25 % Monocytes % 6 % Eosinophils % 3 % Basophils % 0 % Neutrophils # 4.5 (1.3-7.7) k/uL Lymphocytes # 1.8 (1.0-4.8) k/uL Monocytes # 0.4 (0-1.0) k/uL Eosinophils # 0.2 (0-0.7) k/uL Basophils # 0.0 (0-0.2) k/uL Sodium 139 (137-145) mmol/L Potassium 3.6 (3.5-5.1) mmol/L Chloride 110 H (98-107) mmol/L Carbon Dioxide 26 (22-30) mmol/L Anion Gap 3 mmol/L BUN 12 (7-17) mg/dL Creatinine 0.85 (0.52-1.04) mg/dL Est GFR (CKD-EPI)AfAm >90 (>60 ml/min/1.73 sqM) Est GFR (CKD-EPI)NonAf >90 (>60 ml/min/1.73 sqM) Glucose 100 H (74-99) mg/dL Calcium 8.4 (8.4-10.2) mg/dL Total Bilirubin 0.6 (0.2-1.3) mg/dL AST 24 (14-36) U/L ALT 22 (4-34) U/L Alkaline Phosphatase 73 (38-126) U/L Total Protein 6.4 (6.3-8.2) g/dL Albumin 3.7 (3.5-5.0) g/dL HCG, Qual Not Detected - EKG Data EKG Comments: ED physician interpretation (interpreted by me): Normal sinus rhythm, no ectopy, ventricular rate of 71 bpm, normal IA and QRS intervals, normal QT interval, normal axis, no ST or T wave abnormality (Yfn Khan) Disposition <Be Brantley - Last Filed: 06/05/24 21:12> Is patient prescribed a controlled substance at d/c from ED?: No Time of Disposition: 00:46 <Yfn Khan - Last Filed: 06/06/24 00:46> Clinical Impression: Headache, Dizziness Disposition: HOME SELF-CARE Condition: Stable Instructions (If sedation given, give patient instructions): Acute Headache (ED), Dizziness (ED) Additional Instructions: Return to the ER immediately should you develop new or worsening pain, increased dizziness, fainting, numbness or weakness, a seizure, persistent vomiting, shortness of breath, a fever, neck pain or stiffness, or new or worsening sympt oms. Follow-up closely with your primary care provider. Referrals: Amaury Lilly MD [Primary Care Provider] - 1-2 days
[2024-06-05] MEDS: diphenhydrAMINE 50 MG/ML 1 ML VIAL IVP STA (22:44)
[2024-06-05] MEDS: SODIUM CHLORIDE 0.9% 1,000 ML IV STA (22:44)
[2024-06-05] MEDS: METOCLOPRAMIDE 5 MG/ML 2 ML VIAL IVP STA (22:44)
[2024-06-05] MEDS: KETOROLAC 15 MG/ML 1 ML VIAL IVP STA (22:45)
[2024-06-05 23:35] LABS: Basophils % (A) 0 %; Eosinophils # (A) 0.2 k/uL (0-0.7); Eosinophils % (A) 3 %; HCT 40.2 % (34.0-46.0); HGB 13.6 gm/dL (11.4-16.0); Lymphocytes # (A) 1.8 k/uL (1.0-4.8); Lymphocytes % (A) 25 %; MCH 30.4 pg (25.0-35.0); MCHC 33.8 g/dL (31.0-37.0); Mean Platelet Volume 8.6; Monocytes # (A) 0.4 k/uL (0-1.0); Monocytes % (A) 6 %; Neutrophils # (A) 4.5 k/uL (1.3-7.7); Neutrophils % (A) 63 %; Platelet Count 166 k/uL (150-450); RBC 4.47 m/uL (3.80-5.40); RDW 12.6 % (11.5-15.5)
[2024-06-06] LABS: ALT 22 U/L (4-34); AST 24 U/L (14-36); African American GFR (CKD) >90 (>60 ml/min/1.73 sqM); Albumin 3.7 g/dL (3.5-5.0); Alkaline Phosphatase 73 U/L (38-126); Anion Gap 3 mmol/L; Blood Urea Nitrogen 12 mg/dL (7-17); Calcium 8.4 mg/dL (8.4-10.2); Carbon Dioxide 26 mmol/L (22-30); Chloride 110 mmol/L (98-107); Glucose 100 mg/dL (74-99); Non-African American GFR(CKD) >90 (>60 ml/min/1.73 sqM); Potassium 3.6 mmol/L (3.5-5.1); Sodium 139 mmol/L (137-145); Total Bilirubin 0.6 mg/dL (0.2-1.3); Total Protein 6.4 g/dL (6.3-8.2)
[2024-06-06 00:44] LABS: HCG,Qualitative Serum Not Detected
[2024-06-06 01:04] VITALS: BP 117/78; PULSE 78; TEMP 98.3
== END 2024-06-06 00:58 | disposition home or self-care (01) ==
LOC: EC 20:29
CPT/HCPCS: 36415; 80053; 84703; 85025; 93005; 96361; 96374; 96375; 99284

== ENCOUNTER → 2024-06-14 | Outpatient (CLI) | payer OTHER ==
[2024-06-14 16:43] LABS: % Iron Saturation 15.3 (12.00-45.00); Ferritin 50.8 ng/mL (10.0-291.0)
== END | disposition home or self-care (01) ==
LOC: LABWHC1 09:44
PROVIDERS: ATTEND Family Medicine
DX: R42 Dizziness and giddiness (principal)
CPT/HCPCS: 36415; 82306; 82728; 83540; 83550

== ENCOUNTER → 2024-07-04 | Outpatient (CLI) | payer OTHER ==
[2024-07-04 15:31] LABS: Chol/HDL Ratio 4.41 Ratio; LDL Cholesterol,Calculated 118.2 mg/dL (0.0-131.0); T4, Free (Free Thyroxine) 1.22 ng/dL (0.80-1.80); VLDL Calculation 16.26 mg/dL (5.00-40.00)
[2024-07-04 16:01] LABS: Thyroid Peroxidase Antibodies 14.2 U/mL (0.0-33.0)
== END | disposition home or self-care (01) ==
LOC: LABWHC1 11:17
PROVIDERS: ATTEND Family Medicine
DX: E04.1 Nontoxic single thyroid nodule (principal); R79.9 Abnormal finding of blood chemistry, unspecified
CPT/HCPCS: 36415; 80061; 83036; 84439; 84443; 84481; 86376; 86800

== ENCOUNTER → 2024-07-29 | Outpatient (CLI) | payer OTHER ==
--- NOTE | 2024-07-29 13:09 | US ---
EXAMINATION TYPE: US thyroid st tissue head/neck DATE OF EXAM: 07/29/2024 COMPARISON: US CLINICAL INDICATION: Female, 29 years old with history of E04.1 Nontoxic single thyroid nodule; F/U p rior, known nodules TECHNIQUE: Grayscale and color Doppler imaging of the thyroid gland. FINDINGS: GLAND SIZE: Right Lobe: 5.7 x 1.9 x 2.1 cm Overall Parenchyma: homogeneous Left Lobe: 5.7 x 1.3 x 1.9 cm Overall Parenchyma: homogeneous Isthmus Thickness: 0.3 cm NODULES RIGHT: # of nodules measured on right: 0 LEFT: # of nodules measured on left: 2 1. 0.6 X 0.4 x 0.6 cm, upper, Prior size: 0.9 x 0.4 x 0.7 cm TIRADS Score: 4 TIRADS Category 4: Composition: Solid or almost completely solid (2 points). Echogenicity: Hypoechoic (2 points). Shape: Wider than tall (0 points). Margin: Smooth (0 points). Echogenic foci: None or large comet-tail artifacts (0 points) Recommendation: If >1.5cm: FNA; If >1cm: Follow up at 1,2, 3,5 years 2. 0.6 X 0.3 x 0.6 cm, lower, Prior size: 0.7 x 0.5 x 0.5 cm TIRADS Score: 4 TIRADS Category 4: Composition: Solid or almost completely solid (2 points). Echogenicity: Hypoechoic (2 points). Shape: Wider than tall (0 points). Margin: Smooth (0 points). Echogenic foci: None or large comet-tail artifacts (0 points) Recommendation: If >1.5cm: FNA; If >1cm: Follow up at 1,2, 3,5 years ISTHMUS: # of nodules measured in the isthmus: 0 Bilateral neck scanned, no evidence of lymphadenopathy. Stable nodules left lobe. IMPRESSION: Thyroid nodules that meet criteria for follow-up. [facility], , 07/29/2024 1:07 PM
== END | disposition home or self-care (01) ==
LOC: RADUSWWP 11:13
PROVIDERS: ATTEND Family Medicine
DX: E04.2 Nontoxic multinodular goiter (principal)
CPT/HCPCS: 76536

== ENCOUNTER → 2024-08-31 | Outpatient (CLI) | payer OTHER ==
[2024-08-31 19:48] LABS: Magnesium 1.9 mg/dL (1.5-2.4)
== END | disposition home or self-care (01) ==
LOC: LABWHC1 13:25
PROVIDERS: ATTEND Family Medicine
DX: E55.9 Vitamin D deficiency, unspecified (principal); R42 Dizziness and giddiness
CPT/HCPCS: 36415; 82306; 83735; 86038